=== PATIENT | female | born 1945 | race Caucasian/White ===

== ENCOUNTER 2021-02-18 20:24 | Inpatient (IN) | payer MEDICARE ==
[~2021-02-18] VITALS: Ht 165.1 cm; Wt 102.7 kg
[2021-02-18 20:15] VITALS: BP 181/87
[2021-02-18] MEDS ORDERED: HYDR12.575 PO (22:08)
[2021-02-18] MEDS ORDERED: DICY10SO2 PO (22:08)
[2021-02-18] MEDS ORDERED: BIMA2.5D EACHEYE (22:08)
[2021-02-18] MEDS ORDERED: BRIN10DR EACHEYE (22:08)
[2021-02-18] MEDS ORDERED: BRIM5DRO2 OU (22:08)
[2021-02-18] MEDS ORDERED: CHOL500016 PO (22:08)
[2021-02-18] MEDS ORDERED: ASCO500C PO (22:08)
[2021-02-18] MEDS ORDERED: GABA-585 PO (22:08)
[2021-02-18] MEDS ORDERED: PIP/TAZO PER PHARMACY MC PRN (22:30)
[2021-02-18 23:00] VITALS: BP 152/71
[2021-02-18] MEDS ORDERED: LOSA-73 PO (23:07)
[2021-02-18] MEDS: IV NORMAL SALINE 1000ML BAG 1,000 ML IV SCH (23:20)
[2021-02-19] MEDS: PIPERACILLIN/TAZOBACTAM 3.375 GM in IV NORMAL SALINE 50ML 50 ML IV SCH ×5 (00:01→23:53)
[2021-02-19] MEDS: LATANOPROST 0.005% OPHTH SOLUTION 2.5ML BOTTLE. OU SCH ×2 (00:04→21:45)
[2021-02-19 03:00] VITALS: BP 131/62
[2021-02-19 07:00] VITALS: BP 143/64
[2021-02-19 07:32] LABS: BASO % 1 % (0-3); EOS % 1 % (0-3); HEMATOCRIT 35.1 % (36.0-47.0); HEMOGLOBIN 11.9 g/dL (12.0-15.5); LYMPH # 0.9 x10^3/uL (1.0-4.8); LYMPH % 15 % (24-48); MEAN CORPUSCULAR HEMOGLOBIN 31 pg (25-35); MEAN CORPUSCULAR HGB CONC 34 g/dL (31-37); MEAN CORPUSCULAR VOLUME 90 fL (79-100); MONO # 0.4 x10^3/uL (0.0-1.1); MONO % 7 % (0-9); NEUT # 4.7 x10^3/uL (1.8-7.7); NEUT % 77 % (31-73); PLATELET COUNT 299 x10^3/uL (140-400); RED BLOOD COUNT 3.91 x10^6/uL (3.50-5.40); RED CELL DISTRIBUTION WIDTH 13.7 % (11.5-14.5); WHITE BLOOD COUNT 6.1 x10^3/uL (4.0-11.0)
[2021-02-19 07:40] LABS: CALCIUM 9.1 mg/dL (8.5-10.1); CREATININE 0.8 mg/dL (0.6-1.0); GFR 69.6; POTASSIUM 3.4 mmol/L (3.5-5.1)
[2021-02-19] MEDS ORDERED: LOSARTAN POTASSIUM 50 MG TABLET. PO SCH (09:00)
[2021-02-19] MEDS: TIMOLOL 0.5% OPHTH SOLUTION 5ML BOTTLE. OU SCH ×3 (09:43→21:45)
[2021-02-19] MEDS: DORZOLAMIDE 2% OPHTH SOLUTION 10ML BOTTLE. OU SCH ×5 (09:43→21:45)
[2021-02-19] MEDS: BRIMONIDINE 0.2% OPHTH SOLUTION 5ML BOTTLE. OU SCH ×3 (09:43→21:42)
[2021-02-19] MEDS: hydroCHLOROthiazide 12.5 MG CAPSULE PO SCH (09:44)
[2021-02-19] MEDS: CHOLECALCIFEROL (VITAMIN D3) 5,000 UNIT CAPSULE PO SCH (09:45)
[2021-02-19] MEDS: GABAPENTIN 100 MG CAPSULE. PO SCH ×4 (09:45→21:40)
[2021-02-19] MEDS: ASCORBIC ACID 500 MG TABLET PO SCH (09:45)
[2021-02-19] MEDS: DICYCLOMINE HCL 10 MG CAPSULE PO SCH ×5 (09:46→21:40)
[2021-02-19 11:00] VITALS: BP 135/68
--- NOTE | 2021-02-19 11:33 | HP ---
ADMIT DATE: 02/19/2021 CHIEF COMPLAINT: Diverticulitis. HISTORY OF PRESENT ILLNESS: The patient is a pleasant 75-year-old female who presented with diverticulitis. She was transferred from [facility], as they were concerned there could be a perforation. We started IV antibiotics. We consulted general surgery and GI. She is currently being examined on the medical floor. PAST MEDICAL HISTORY: Urinary urgency, hard of hearing, hypertension, neuropathy, glaucoma. ALLERGIES: None. FAMILY HISTORY: Glaucoma. SOCIAL HISTORY: She does drink, smoke or take drugs. She is retired. MEDICATIONS: Reviewed. She is on dicyclomine, losartan, gabapentin, hydrochlorothiazide, Combigan eyedrops, Azopt eyedrops, Lumigan eyedrops, vitamin C and vitamin D3. REVIEW OF SYSTEMS: GENERAL: No history of weight change, weakness or fevers. SKIN: No bruising, hair changes or rashes. EYES: No blurred, double or loss of vision. NOSE AND THROAT: No history of nosebleeds, hoarseness or sore throat. HEART: No history of palpitations, chest pain or shortness of breath on exertion. LUNGS: Denies cough, hemoptysis, wheezing or shortness of breath. GASTROINTESTINAL: Denies changes in appetite, nausea, vomiting, diarrhea or constipation. GENITOURINARY: No history of frequency, urgency, hesitancy or nocturia. NEUROLOGIC: Denies history of numbness, tingling, tremor or weakness. PSYCHIATRIC: No history of panic, anxiety or depression. ENDOCRINE: No history of heat or cold intolerance, polyuria or polydipsia. EXTREMITIES: Denies muscle weakness, joint pain, pain on walking or stiffness. PHYSICAL EXAMINATION: VITALS: Within normal limits and are stable. GENERAL: No apparent distress. Alert and oriented. HEENT: Normal cephalic atraumatic, external auditory canals are patent. EYES: Extraocular muscles are intact, pupils are equally round and reactive to light and accommodation. MUSCULOSKELETAL: Well developed, well nourished, good range of motion. ENDOCRINE: No thyromegaly was palpated. LYMPHATICS: No cervical chain or axillary nodes were noted. HEMATOPOIETIC: No bruising. NECK: Supple, no JVD, no thyromegaly was noted. LUNGS: Clear to auscultation in all lung crump without rhonchi or wheezing. HEART: RRR, S1, S2 present. Peripheral pulses intact, no obvious murmurs were noted. ABDOMEN: Soft, nontender. Positive bowel sounds no organomegaly, normal bowel sounds. EXTREMITIES: Without any cyanosis, clubbing, or edema. Pedal pulses intact, Homans sign is negative. NEUROLOGIC: Normal speech, normal tone. A and O x3, moves all extremities, no obvious focal deficits. PSYCHIATRIC: Normal affect, normal mood. Stable. SKIN: No ulcerations or rashes, good skin turgor, no jaundice. VASCULAR: Good capillary refill, neurovascular bundle appears to be intact. LABORATORY DATA: White count is 6, hemoglobin 12, platelets 299. Electrolytes are normal other than potassium of 3.4, glucose is slightly high at 110. ASSESSMENT AND PLAN: Diverticulitis with possible diverticular abscess and perforation. Clinically, the patient is doing better this morning. We will continue the IV Zosyn. I am going to continue her home meds. I have added in oxybutynin 5 mg p.o. t.i.d. as she complains of urinary urgency. Home meds. DVT prophylaxis. Full code. Await subspecialist input. Trend labs. JAYSHREE/DEAN/MOH DR: JAYSHREE/derek TID: [id number]
--- NOTE | 2021-02-19 13:09 | PDOC2 ---
CONSULT Date of Consult Date of Consult DATE: 02/19/21 TIME: 13:04 History of Present Illness Reason for Visit: The patient is a 75 year old female who was admitted after obtaining an outpatient CT scan. She reports having intermittent LLQ pain for a few months, and she states she has had a prior history of diverticulitis. In addition she reports having "bladder issues" with pain and frequent urination. She also has had several UTIs in the past. Past Medical History Past Medical History obesity, neuropathy, anxiety Past Surgical History Past Surgical History tubal ligation, excision of a tubal mass, cardiac cath Social History No Current Medications Current Medications Current Medications Piperacillin Sod/ Tazobactam Sod (Zosyn Per Pharmacy) 1 each PRN DAILY PRN [facility] SEE COMMENTS; Start 02/18/21 at 22:30 Sodium Chloride 1,000 ml @ 75 mls/hr [id number] IV Last administered on 02/18/21at 23:20; Start 02/18/21 at 22:30 Piperacillin Sod/ Tazobactam Sod 3.375 gm/Sodium Chloride 50 ml @ 100 mls/hr Q6HRS IV Last administered on 02/19/21at 05:36; Start 02/19/21 at 00:00 Gabapentin (Neurontin) 100 mg TID PO Last administered on 02/19/21at 09:45; Start 02/19/21 at 00:00 Hydrochlorothiazide (Microzide) 12.5 mg DAILY PO Last administered on 02/19/21at 09:44; Start 02/19/21 at 09:00 Losartan Potassium (Cozaar) 50 mg DAILY PO ; Start 02/19/21 at 09:00 Ascorbic Acid (Vitamin C) 500 mg DAILY PO Last administered on 02/19/21at 09:45; Start 02/19/21 at 09:00 Latanoprost (Xalatan) 1 drop QHS OU Last administered on 02/19/21at 00:04; Start 02/19/21 at 00:00 Brimonidine Tartrate (Alphagan) 1 drop BID OU Last administered on 02/19/21at 09:43; Start 02/19/21 at 00:00 Dorzolamide HCl (Trusopt) 1 drop TID OU Last administered on 02/19/21at 09:43; Start 02/19/21 at 00:00 Vitamin D (Vitamin D3) 5,000 unit DAILY PO Last administered on 02/19/21at 09:45; Start 02/19/21 at 09:00 Dicyclomine HCl (Bentyl) 10 mg QID PO Last administered on 02/19/21at 09:46; Start 02/19/21 at 00:00 Timolol Maleate (Timoptic 0.5% Ophth) 1 drop BID OU Last administered on 02/19/21at 09:43; Start 02/19/21 at 00:00 Oxybutynin Chloride (Ditropan) 5 mg [id number] PO ; Start 02/19/21 at 14:00 Active Scripts Active Reported Losartan Potassium 50 Mg Tablet 50 Mg PO DAILY Vitamin C (Ascorbic Acid) 500 Mg Capsule.er 1 Cap PO DAILY 30 Days Vitamin D3 (Cholecalciferol (Vitamin D3)) 125 Mcg Tablet 125 Mcg PO DAILY Azopt (Brinzolamide) 10 Ml Drops.susp 1 Drop EACHEYE TID Combigan Eye Drops (Brimonidine Tartrate/Timolol) 5 Ml Drops 5 Ml OU BID Lumigan (Bimatoprost) 2.5 Ml Drops 1 Drop EACHEYE QHS Dicyclomine Hcl 10 Mg/5 Ml Solution 10 Mg PO QID Gabapentin (Gabapentin) 100 Mg Capsule 100 Mg PO TID Hydrochlorothiazide Capsule (Hydrochlorothiazide) 12.5 Mg Capsule 12.5 Mg PO DAILY Allergies Allergies: Coded Allergies: No Known Drug Allergies (Unverified , 02/18/21) ROS General: No: Chills, Night Sweats, Fatigue, Malaise, Appetite, Other PSYCHOLOGICAL ROS: No: Anxiety, Behavioral Disorder, Concentration difficultie, Decreased libido, Depression, Disorientation, Hallucinations, Hostility, Irritablity, Memory difficulties, Mood Swings, Obsessive thoughts, Physical abuse, Sexual abuse, Sleep disturbances, Suicidal ideation, Other Eyes: No Blurry vision, No Decreased vision, No Double vision, No Dry eyes, No Excessive tearing, No Eye Pain, No Itchy Eyes, No Loss of vision, No Photophobia, No Scotomata, No Uses contacts, No Uses glasses, No Other ALLERGY AND IMMUNOLOGY: No: Hives, Insect Bite Sensitivity, Itchy/Watery Eyes, Nasal Congestion, Post Nasal Drip, Seasonal Allergies, Other Hematological and Lymphatic: No: Bleeding Problems, Blood Clots, Blood Transfusions, Brusing, Night Sweats, Pallor, Swollen Lymph Nodes, Other ENDOCRINE: No: Breast Changes, Galactorrhea, Hair Pattern Changes, Hot Flashes, Malaise/lethargy, Mood Swings, Palpitations, Polydipsia/polyuria, Skin Changes, Temperature Intolerance, Unexpected Weight Changes, Other Breast: No New/Changing Breast Lumps, No Nipple changes, No Nipple discharge, No Other Respiratory: No: Cough, Hemoptysis, Orthopnea, Pleuritic Pain, Shortness of breath, SOB with excertion, Sputum Changes, Stridor, Tachypnea, Wheezing, Other Gastrointestinal: Yes Abdominal Pain Genitourinary: YES Dysuria, YES Frequency Musculoskeletal: No Gait Disturbance, No Joint Pain, No Joint Stiffness, No Joint Swelling, No Muscle Pain, No Muscular Weakness, No Pain In:, No Swelling In:, No Other Neurological: No Behavorial Changes, No Bowel/Bladder ControlChng, No Confusion, No Dizziness, No Gait Disturbance, No Headaches, No Impaired Coord/balance, No Memory Loss, No Numbness/Tingling, No Seizures, No Speech Problems, No Tremors, No Visual Changes, No Weakness, No Other Skin: No Dry Skin, No Eczema, No Hair Changes, No Lumps, No Mole Changes, No Mottling, No Nail Changes, No Pruritus, No Rash, No Skin Lesion Changes, No Other, No Acne Physical Exam General: Alert, Oriented X3, Cooperative, Other (hard of hearing) HEENT: Atraumatic Heart: Regular rate Abdomen: Soft (obese, tender in LLQ) Extremities: No clubbing, No cyanosis Skin: No rashes Neuro: Normal speech Vitals VITALS Vital Signs Date Time Temp Pulse Resp B/P (MAP) Pulse Ox O2 Delivery O2 Flow Rate FiO2 02/19/21 11:00 98.4 76 18 135/68 (90) 92 Room Air 98.4 Labs Labs Laboratory Tests Test 02/19/21 06:30 White Blood Count 6.1 x10^3/uL (4.0-11.0) Red Blood Count 3.91 x10^6/uL (3.50-5.40) Hemoglobin 11.9 g/dL (12.0-15.5) Hematocrit 35.1 % (36.0-47.0) Mean Corpuscular Volume 90 fL (79-100) Mean Corpuscular Hemoglobin 31 pg (25-35) Mean Corpuscular Hemoglobin Concent 34 g/dL (31-37) Red Cell Distribution Width 13.7 % (11.5-14.5) Platelet Count 299 x10^3/uL (140-400) Neutrophils (%) (Auto) 77 % (31-73) Lymphocytes (%) (Auto) 15 % (24-48) Monocytes (%) (Auto) 7 % (0-9) Eosinophils (%) (Auto) 1 % (0-3) Basophils (%) (Auto) 1 % (0-3) Neutrophils # (Auto) 4.7 x10^3/uL (1.8-7.7) Lymphocytes # (Auto) 0.9 x10^3/uL (1.0-4.8) Monocytes # (Auto) 0.4 x10^3/uL (0.0-1.1) Eosinophils # (Auto) 0.0 x10^3/uL (0.0-0.7) Basophils # (Auto) 0.0 x10^3/uL (0.0-0.2) Sodium Level 137 mmol/L (136-145) Potassium Level 3.4 mmol/L (3.5-5.1) Chloride Level 101 mmol/L (98-107) Carbon Dioxide Level 31 mmol/L (21-32) Anion Gap 5 (6-14) Blood Urea Nitrogen 8 mg/dL (7-20) Creatinine 0.8 mg/dL (0.6-1.0) Estimated GFR (Cockcroft-Gault) 69.6 Glucose Level 110 mg/dL (70-99) Calcium Level 9.1 mg/dL (8.5-10.1) Laboratory Tests Test 02/19/21 06:30 White Blood Count 6.1 x10^3/uL (4.0-11.0) Red Blood Count 3.91 x10^6/uL (3.50-5.40) Hemoglobin 11.9 g/dL (12.0-15.5) Hematocrit 35.1 % (36.0-47.0) Mean Corpuscular Volume 90 fL (79-100) Mean Corpuscular Hemoglobin 31 pg (25-35) Mean Corpuscular Hemoglobin Concent 34 g/dL (31-37) Red Cell Distribution Width 13.7 % (11.5-14.5) Platelet Count 299 x10^3/uL (140-400) Neutrophils (%) (Auto) 77 % (31-73) Lymphocytes (%) (Auto) 15 % (24-48) Monocytes (%) (Auto) 7 % (0-9) Eosinophils (%) (Auto) 1 % (0-3) Basophils (%) (Auto) 1 % (0-3) Neutrophils # (Auto) 4.7 x10^3/uL (1.8-7.7) Lymphocytes # (Auto) 0.9 x10^3/uL (1.0-4.8) Monocytes # (Auto) 0.4 x10^3/uL (0.0-1.1) Eosinophils # (Auto) 0.0 x10^3/uL (0.0-0.7) Basophils # (Auto) 0.0 x10^3/uL (0.0-0.2) Sodium Level 137 mmol/L (136-145) Potassium Level 3.4 mmol/L (3.5-5.1) Chloride Level 101 mmol/L (98-107) Carbon Dioxide Level 31 mmol/L (21-32) Anion Gap 5 (6-14) Blood Urea Nitrogen 8 mg/dL (7-20) Creatinine 0.8 mg/dL (0.6-1.0) Estimated GFR (Cockcroft-Gault) 69.6 Glucose Level 110 mg/dL (70-99) Calcium Level 9.1 mg/dL (8.5-10.1) Images Images [place] at [facility] [place]; consistent with diverticulitis with colovesicular fistula Assessment/Plan Assessment/Plan Abdominal pain, suspect diverticulitis with likely colovesicular fistula. On IV abx at this time, likely a chronic process; continue abx, pain control for acute inflammation; ultimately will need to coordinate surgical intervention combined with urology assistance for definitive treatment (sigmoid colon resection with probably ostomy, possible bladder repair, ureteral stenting). KEE AYERS MD Feb 19, 2021 13:09
[2021-02-19] MEDS: OXYBUTYNIN CHLORIDE 5 MG TABLET PO SCH ×2 (13:11→21:40)
[2021-02-19] MEDS: IV NORMAL SALINE 1000ML BAG 1,000 ML IV SCH (13:12)
[2021-02-19 15:00] VITALS: BP 140/65
--- NOTE | 2021-02-19 15:29 | PDOC2 ---
GI CONSULT Reason For Consult: diverticulitis with colovesical fistula HPI: HPI: &5 year old female who was admitted after obtaining an outpatient CT scan that was suspicious for a colovesical fistula She reports having intermittent LLQ pain for a few months, and she states she has had a prior history of diverticul itis. In addition she reports having "bladder issues" with pain and frequent urination. She also has had several UTIs in the past. PMH: PMH: Past Medical History Past Medical History obesity, neuropathy, anxiety Past Surgical History Past Surgical History tubal ligation, excision of a tubal mass, cardiac cath Social HistoryShe does drink, smoke or take drugs. She is retired. ALLERGIES: None. FAMILY HISTORY: Glaucoma. SOCIAL HISTORY: Current Medications Current Medications Current Medications Piperacillin Sod/ Tazobactam Sod (Zosyn Per Pharmacy) 1 each PRN DAILY PRN [facility] SEE COMMENTS; Start 02/18/21 at 22:30 Sodium Chloride 1,000 ml @ 75 mls/hr [id number] IV Last administered on 02/18/21at 23:20; Start 02/18/21 at 22:30 Piperacillin Sod/ Tazobactam Sod 3.375 gm/Sodium Chloride 50 ml @ 100 mls/hr Q6HRS IV Last administered on 02/19/21at 05:36; Start 02/19/21 at 00:00 Gabapentin (Neurontin) 100 mg TID PO Last administered on 02/19/21at 09:45; Start 02/19/21 at 00:00 Hydrochlorothiazide (Microzide) 12.5 mg DAILY PO Last administered on 02/19/21at 09:44; Start 02/19/21 at 09:00 Losartan Potassium (Cozaar) 50 mg DAILY PO ; Start 02/19/21 at 09:00 Ascorbic Acid (Vitamin C) 500 mg DAILY PO Last administered on 02/19/21at 09:45; Start 02/19/21 at 09:00 Latanoprost (Xalatan) 1 drop QHS OU Last administered on 02/19/21at 00:04; Start 02/19/21 at 00:00 Brimonidine Tartrate (Alphagan) 1 drop BID OU Last administered on 02/19/21at 09:43; Start 02/19/21 at 00:00 Dorzolamide HCl (Trusopt) 1 drop TID OU Last administered on 02/19/21at 09:43; Start 02/19/21 at 00:00 Vitamin D (Vitamin D3) 5,000 unit DAILY PO Last administered on 02/19/21at 09:45; Start 02/19/21 at 09:00 Dicyclomine HCl (Bentyl) 10 mg QID PO Last administered on 02/19/21at 09:46; Start 02/19/21 at 00:00 Timolol Maleate (Timoptic 0.5% Ophth) 1 drop BID OU Last administered on 02/19/21at 09:43; Start 02/19/21 at 00:00 Oxybutynin Chloride (Ditropan) 5 mg [id number] PO ; Start 02/19/21 at 14:00 Active Scripts Active Reported Losartan Potassium 50 Mg Tablet 50 Mg PO DAILY Vitamin C (Ascorbic Acid) 500 Mg Capsule.er 1 Cap PO DAILY 30 Days Vitamin D3 (Cholecalciferol (Vitamin D3)) 125 Mcg Tablet 125 Mcg PO DAILY Azopt (Brinzolamide) 10 Ml Drops.susp 1 Drop EACHEYE TID Combigan Eye Drops (Brimonidine Tartrate/Timolol) 5 Ml Drops 5 Ml OU BID Lumigan (Bimatoprost) 2.5 Ml Drops 1 Drop EACHEYE QHS Dicyclomine Hcl 10 Mg/5 Ml Solution 10 Mg PO QID Gabapentin (Gabapentin) 100 Mg Capsule 100 Mg PO TID Hydrochlorothiazide Capsule (Hydrochlorothiazide) 12.5 Mg Capsule 12.5 Mg PO DAILY Allergies Allergies: Coded Allergies: No Known Drug Allergies FH: Family History: No pertinent hx Social History: Smoke: No ROS: ROS General: No: Chills, Night Sweats, Fatigue, Malaise, Appetite, Other PSYCHOLOGICAL ROS: No: Anxiety, Behavioral Disorder, Concentration difficultie, Decreased libido, Depression, Disorientation, Hallucinations, Hostility, Irritablity, Memory difficulties, Mood Swings, Obsessive thoughts, Physical abuse, Sexual abuse, Sleep disturbances, Suicidal ideation, Other Eyes: No Blurry vision, No Decreased vision, No Double vision, No Dry eyes, No Excessive tearing, No Eye Pain, No Itchy Eyes, No Loss of vision, No Photophobia, No Scotomata, No Uses contacts, No Uses glasses, No Other ALLERGY AND IMMUNOLOGY: No: Hives, Insect Bite Sensitivity, Itchy/Watery Eyes, Nasal Congestion, Post Nasal Drip, Seasonal Allergies, Other Hematological and Lymphatic: No: Bleeding Problems, Blood Clots, Blood Transfusions, Brusing, Night Sweats, Pallor, Swollen Lymph Nodes, Other ENDOCRINE: No: Breast Changes, Galactorrhea, Hair Pattern Changes, Hot Flashes, Malaise/lethargy, Mood Swings, Palpitations, Polydipsia/polyuria, Skin Changes, Temperature Intolerance, Unexpected Weight Changes, Other Breast: No New/Changing Breast Lumps, No Nipple changes, No Nipple discharge, No Other Respiratory: No: Cough, Hemoptysis, Orthopnea, Pleuritic Pain, Shortness of breath, SOB with excertion, Sputum Changes, Stridor, Tachypnea, Wheezing, Other Gastrointestinal: Yes Abdominal Pain Genitourinary: YES Dysuria, YES Frequency Musculoskeletal: No Gait Disturbance, No Joint Pain, No Joint Stiffness, No Joint Swelling, No Muscle Pain, No Muscular Weakness, No Pain In:, No Swelling In:, No Other Neurological: No Behavorial Changes, No Bowel/Bladder ControlChng, No Confusion, No Dizziness, No Gait Disturbance, No Headaches, No Impaired Coord/balance, No Memory Loss, No Numbness/Tingling, No Seizures, No Speech Problems, No Tremors, No Visual Changes, No Weakness, No Other Skin: No Dry Skin, No Eczema, No Hair Changes, No Lumps, No Mole Changes, No Mottling, No Nail Changes, No Pruritus, No Rash, No Skin Lesion Changes, No Other, No Acne VItals: Vitals: Vital Signs Date Time Temp Pulse Resp B/P (MAP) Pulse Ox O2 Delivery O2 Flow Rate FiO2 02/19/21 11:00 98.4 76 18 135/68 (90) 92 Room Air 98.4 Labs: Labs: Laboratory Tests Test 02/19/21 06:30 White Blood Count 6.1 x10^3/uL (4.0-11.0) Red Blood Count 3.91 x10^6/uL (3.50-5.40) Hemoglobin 11.9 g/dL (12.0-15.5) Hematocrit 35.1 % (36.0-47.0) Mean Corpuscular Volume 90 fL (79-100) Mean Corpuscular Hemoglobin 31 pg (25-35) Mean Corpuscular Hemoglobin Concent 34 g/dL (31-37) Red Cell Distribution Width 13.7 % (11.5-14.5) Platelet Count 299 x10^3/uL (140-400) Neutrophils (%) (Auto) 77 % (31-73) Lymphocytes (%) (Auto) 15 % (24-48) Monocytes (%) (Auto) 7 % (0-9) Eosinophils (%) (Auto) 1 % (0-3) Basophils (%) (Auto) 1 % (0-3) Neutrophils # (Auto) 4.7 x10^3/uL (1.8-7.7) Lymphocytes # (Auto) 0.9 x10^3/uL (1.0-4.8) Monocytes # (Auto) 0.4 x10^3/uL (0.0-1.1) Eosinophils # (Auto) 0.0 x10^3/uL (0.0-0.7) Basophils # (Auto) 0.0 x10^3/uL (0.0-0.2) Sodium Level 137 mmol/L (136-145) Potassium Level 3.4 mmol/L (3.5-5.1) Chloride Level 101 mmol/L (98-107) Carbon Dioxide Level 31 mmol/L (21-32) Anion Gap 5 (6-14) Blood Urea Nitrogen 8 mg/dL (7-20) Creatinine 0.8 mg/dL (0.6-1.0) Estimated GFR (Cockcroft-Gault) 69.6 Glucose Level 110 mg/dL (70-99) Calcium Level 9.1 mg/dL (8.5-10.1) PE: General: Alert, Oriented X3, Cooperative, Other (hard of hearing) HEENT: Atraumatic Heart: Regular rate Abdomen: Soft (obese, tender in LLQ) Extremities: No clubbing, No cyanosis Skin: No rashes Neuro: Normal speech A/P: A/P: A&P 1) Diverticulitis: abd per surgery 2) 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 Per patient family possible [facility] transfer to access Urology care vs outpatient care. MORELIA PECK MD Feb 19, 2021 15:29
[2021-02-19 19:00] VITALS: BP 128/53
[2021-02-19] MEDS: LACTOBACILLUS RHAMNOSUS GG 1 CAPSULE. PO SCH (21:41)
[2021-02-19] MEDS: LOSARTAN POTASSIUM 50 MG TABLET. PO SCH (21:41)
[2021-02-19 23:00] VITALS: BP 133/53
[2021-02-20 03:00] VITALS: BP 130/51
[2021-02-20] MEDS: IV NORMAL SALINE 1000ML BAG 1,000 ML IV SCH ×2 (04:39→18:09)
[2021-02-20] MEDS: PIPERACILLIN/TAZOBACTAM 3.375 GM in IV NORMAL SALINE 50ML 50 ML IV SCH ×3 (06:06→18:10)
[2021-02-20 07:00] VITALS: BP 146/63
[2021-02-20 07:54] LABS: BASO % 1 % (0-3); EOS # 0.1 x10^3/uL (0.0-0.7); EOS % 3 % (0-3); HEMATOCRIT 34.8 % (36.0-47.0); HEMOGLOBIN 11.5 g/dL (12.0-15.5); LYMPH # 1.2 x10^3/uL (1.0-4.8); LYMPH % 26 % (24-48); MEAN CORPUSCULAR HEMOGLOBIN 30 pg (25-35); MEAN CORPUSCULAR HGB CONC 33 g/dL (31-37); MEAN CORPUSCULAR VOLUME 91 fL (79-100); MONO # 0.7 x10^3/uL (0.0-1.1); MONO % 14 % (0-9); NEUT # 2.7 x10^3/uL (1.8-7.7); NEUT % 57 % (31-73); PLATELET COUNT 283 x10^3/uL (140-400); RED BLOOD COUNT 3.82 x10^6/uL (3.50-5.40); RED CELL DISTRIBUTION WIDTH 13.8 % (11.5-14.5); WHITE BLOOD COUNT 4.7 x10^3/uL (4.0-11.0)
[2021-02-20 08:16] LABS: CALCIUM 8.9 mg/dL (8.5-10.1); CREATININE 0.7 mg/dL (0.6-1.0); GFR 81.1; POTASSIUM 3.3 mmol/L (3.5-5.1)
[2021-02-20] MEDS: ASCORBIC ACID 500 MG TABLET PO SCH (08:41)
[2021-02-20] MEDS: OXYBUTYNIN CHLORIDE 5 MG TABLET PO SCH ×3 (08:41→20:34)
[2021-02-20] MEDS: LACTOBACILLUS RHAMNOSUS GG 1 CAPSULE. PO SCH ×2 (08:41→20:34)
[2021-02-20] MEDS: hydroCHLOROthiazide 12.5 MG CAPSULE PO SCH (08:41)
[2021-02-20] MEDS: CHOLECALCIFEROL (VITAMIN D3) 5,000 UNIT CAPSULE PO SCH (08:41)
[2021-02-20] MEDS: GABAPENTIN 100 MG CAPSULE. PO SCH ×3 (08:41→20:34)
[2021-02-20] MEDS: DICYCLOMINE HCL 10 MG CAPSULE PO SCH ×4 (08:41→20:34)
[2021-02-20] MEDS: TIMOLOL 0.5% OPHTH SOLUTION 5ML BOTTLE. OU SCH ×2 (08:45→15:08)
[2021-02-20] MEDS: DORZOLAMIDE 2% OPHTH SOLUTION 10ML BOTTLE. OU SCH ×3 (08:45→20:32)
[2021-02-20] MEDS: BRIMONIDINE 0.2% OPHTH SOLUTION 5ML BOTTLE. OU SCH ×2 (08:45→15:09)
[2021-02-20] MEDS ORDERED: POTASSIUM CHLORIDE 20 MEQ TABLET.ER. PO ONE (10:15)
--- NOTE | 2021-02-20 10:32 | PDOC ---
PROGRESS NOTES Date of Service DATE: 02/20/21 TIME: 10:30 Subjective Subjective improving, some pain but better Objective Objective Vital Signs Date Time Temp Pulse Resp B/P (MAP) Pulse Ox O2 Delivery O2 Flow Rate FiO2 02/20/21 08:00 Room Air 02/20/21 07:00 97.2 71 18 146/63 (90) 94 97.2 Intake and Output 02/20/21 07:00 Intake Total 390 ml Balance 390 ml Intake Oral 390 ml # Voids 7 Physical Exam Abdomen: Soft (tender LLQ) Heart: Regular rate Extremities: No clubbing, No cyanosis General: Alert, Oriented X3 Lungs: Clear to auscultation Psych/Mental Status: Mental status NL Assessment Assessment Diverticulitis Plan Plan of Care Continue IV abx; seems to be stable and improving; next week will try to make arrangements for definitive care, likely will be able to be discharged on oral abx with FU plans to see Urology and Surgery to coordinate surgical tx Comment Review of Relevant I have reviewed the following items monserrat (where applicable) has been applied. Labs Laboratory Tests Test 02/19/21 06:30 02/20/21 06:40 White Blood Count 6.1 x10^3/uL (4.0-11.0) 4.7 x10^3/uL (4.0-11.0) Red Blood Count 3.91 x10^6/uL (3.50-5.40) 3.82 x10^6/uL (3.50-5.40) Hemoglobin 11.9 g/dL (12.0-15.5) 11.5 g/dL (12.0-15.5) Hematocrit 35.1 % (36.0-47.0) 34.8 % (36.0-47.0) Mean Corpuscular Volume 90 fL (79-100) 91 fL (79-100) Mean Corpuscular Hemoglobin 31 pg (25-35) 30 pg (25-35) Mean Corpuscular Hemoglobin Concent 34 g/dL (31-37) 33 g/dL (31-37) Red Cell Distribution Width 13.7 % (11.5-14.5) 13.8 % (11.5-14.5) Platelet Count 299 x10^3/uL (140-400) 283 x10^3/uL (140-400) Neutrophils (%) (Auto) 77 % (31-73) 57 % (31-73) Lymphocytes (%) (Auto) 15 % (24-48) 26 % (24-48) Monocytes (%) (Auto) 7 % (0-9) 14 % (0-9) Eosinophils (%) (Auto) 1 % (0-3) 3 % (0-3) Basophils (%) (Auto) 1 % (0-3) 1 % (0-3) Neutrophils # (Auto) 4.7 x10^3/uL (1.8-7.7) 2.7 x10^3/uL (1.8-7.7) Lymphocytes # (Auto) 0.9 x10^3/uL (1.0-4.8) 1.2 x10^3/uL (1.0-4.8) Monocytes # (Auto) 0.4 x10^3/uL (0.0-1.1) 0.7 x10^3/uL (0.0-1.1) Eosinophils # (Auto) 0.0 x10^3/uL (0.0-0.7) 0.1 x10^3/uL (0.0-0.7) Basophils # (Auto) 0.0 x10^3/uL (0.0-0.2) 0.0 x10^3/uL (0.0-0.2) Sodium Level 137 mmol/L (136-145) 142 mmol/L (136-145) Potassium Level 3.4 mmol/L (3.5-5.1) 3.3 mmol/L (3.5-5.1) Chloride Level 101 mmol/L (98-107) 104 mmol/L (98-107) Carbon Dioxide Level 31 mmol/L (21-32) 32 mmol/L (21-32) Anion Gap 5 (6-14) 6 (6-14) Blood Urea Nitrogen 8 mg/dL (7-20) 5 mg/dL (7-20) Creatinine 0.8 mg/dL (0.6-1.0) 0.7 mg/dL (0.6-1.0) Estimated GFR (Cockcroft-Gault) 69.6 81.1 Glucose Level 110 mg/dL (70-99) 93 mg/dL (70-99) Calcium Level 9.1 mg/dL (8.5-10.1) 8.9 mg/dL (8.5-10.1) Laboratory Tests Test 02/20/21 06:40 White Blood Count 4.7 x10^3/uL (4.0-11.0) Red Blood Count 3.82 x10^6/uL (3.50-5.40) Hemoglobin 11.5 g/dL (12.0-15.5) Hematocrit 34.8 % (36.0-47.0) Mean Corpuscular Volume 91 fL (79-100) Mean Corpuscular Hemoglobin 30 pg (25-35) Mean Corpuscular Hemoglobin Concent 33 g/dL (31-37) Red Cell Distribution Width 13.8 % (11.5-14.5) Platelet Count 283 x10^3/uL (140-400) Neutrophils (%) (Auto) 57 % (31-73) Lymphocytes (%) (Auto) 26 % (24-48) Monocytes (%) (Auto) 14 % (0-9) Eosinophils (%) (Auto) 3 % (0-3) Basophils (%) (Auto) 1 % (0-3) Neutrophils # (Auto) 2.7 x10^3/uL (1.8-7.7) Lymphocytes # (Auto) 1.2 x10^3/uL (1.0-4.8) Monocytes # (Auto) 0.7 x10^3/uL (0.0-1.1) Eosinophils # (Auto) 0.1 x10^3/uL (0.0-0.7) Basophils # (Auto) 0.0 x10^3/uL (0.0-0.2) Sodium Level 142 mmol/L (136-145) Potassium Level 3.3 mmol/L (3.5-5.1) Chloride Level 104 mmol/L (98-107) Carbon Dioxide Level 32 mmol/L (21-32) Anion Gap 6 (6-14) Blood Urea Nitrogen 5 mg/dL (7-20) Creatinine 0.7 mg/dL (0.6-1.0) Estimated GFR (Cockcroft-Gault) 81.1 Glucose Level 93 mg/dL (70-99) Calcium Level 8.9 mg/dL (8.5-10.1) Medications Current Medications Piperacillin Sod/ Tazobactam Sod (Zosyn Per Pharmacy) 1 each PRN DAILY PRN MC SEE COMMENTS; Start 02/18/21 at 22:30 Sodium Chloride 1,000 ml @ 75 mls/hr [id number] IV Last administered on 02/20/21at 04:39; Start 02/18/21 at 22:30 Piperacillin Sod/ Tazobactam Sod 3.375 gm/Sodium Chloride 50 ml @ 100 mls/hr Q6HRS IV Last administered on 02/20/21at 06:06; Start 02/19/21 at 00:00 Gabapentin (Neurontin) 100 mg TID PO Last administered on 02/20/21at 08:41; Start 02/19/21 at 00:00 Hydrochlorothiazide (Microzide) 12.5 mg DAILY PO Last administered on 02/20/21at 08:41; Start 02/19/21 at 09:00 Losartan Potassium (Cozaar) 50 mg DAILY PO ; Start 02/19/21 at 09:00; Stop 02/19/21 at 19:06; Status DC Ascorbic Acid (Vitamin C) 500 mg DAILY PO Last administered on 02/20/21at 08:41; Start 02/19/21 at 09:00 Latanoprost (Xalatan) 1 drop QHS OU Last administered on 02/19/21at 21:45; Start 02/19/21 at 00:00 Brimonidine Tartrate (Alphagan) 1 drop BID OU Last administered on 02/19/21at 21:42; Start 02/19/21 at 00:00; Stop 02/20/21 at 08:11; Status DC Dorzolamide HCl (Trusopt) 1 drop TID OU Last administered on 02/20/21at 08:45; Start 02/19/21 at 00:00 Vitamin D (Vitamin D3) 5,000 unit DAILY PO Last administered on 02/20/21at 08:41; Start 02/19/21 at 09:00 Dicyclomine HCl (Bentyl) 10 mg QID PO Last administered on 02/20/21at 08:41; Start 02/19/21 at 00:00 Timolol Maleate (Timoptic 0.5% [facility]) 1 drop BID OU Last administered on 02/19/21at 21:45; Start 02/19/21 at 00:00; Stop 02/20/21 at 08:11; Status DC Oxybutynin Chloride (Ditropan) 5 mg [id number] PO Last administered on 02/20/21at 08:41; Start 02/19/21 at 14:00 Lactobacillus Rhamnosus (Culturelle) 1 cap BID PO Last administered on 02/20/21at 08:41; Start 02/19/21 at 21:00 Losartan Potassium (Cozaar) 50 mg QHS PO Last administered on 02/19/21at 21:41; Start 02/19/21 at 21:00 Brimonidine Tartrate (Alphagan) 1 drop [id number] OU Last administered on 02/20/21at 08:45; Start 02/20/21 at 09:00 Timolol Maleate (Timoptic 0.5% Oph) 1 drop [id number] OU Last administered on 02/20/21at 08:45; Start 02/20/21 at 09:00 Potassium Chloride (Klor-Con) 40 meq 1X ONCE PO ; Start 02/20/21 at 10:15; Stop 02/20/21 at 10:22; Status DC Active Scripts Active Reported Losartan Potassium 50 Mg Tablet 50 Mg PO DAILY Vitamin C (Ascorbic Acid) 500 Mg Capsule.er 1 Cap PO DAILY 30 Days Vitamin D3 (Cholecalciferol (Vitamin D3)) 125 Mcg Tablet 125 Mcg PO DAILY Azopt (Brinzolamide) 10 Ml Drops.susp 1 Drop EACHEYE TID Combigan Eye Drops (Brimonidine Tartrate/Timolol) 5 Ml Drops 5 Ml OU BID Lumigan (Bimatoprost) 2.5 Ml Drops 1 Drop EACHEYE QHS Dicyclomine Hcl 10 Mg/5 Ml Solution 10 Mg PO QID Gabapentin (Gabapentin) 100 Mg Capsule 100 Mg PO TID Hydrochlorothiazide Capsule (Hydrochlorothiazide) 12.5 Mg Capsule 12.5 Mg PO DAILY Vitals/I & O Vital Sign - Last 24 Hours 02/19/21 02/19/21 02/19/21 02/19/21 11:00 15:00 19:00 20:00 Temp 98.4 98.2 97.8 98.4 98.2 97.8 Pulse 76 82 74 Resp 18 18 18 B/P (MAP) 135/68 (90) 140/65 (90) 128/53 (78) Pulse Ox 92 92 96 O2 Delivery Room Air Room Air Room Air Room Air 02/19/21 02/19/21 02/20/21 02/20/21 21:41 23:00 03:00 07:00 Temp 97.8 97.9 97.2 97.8 97.9 97.2 Pulse 74 80 76 71 Resp 18 B/P (MAP) 128/53 133/53 (79) 130/51 (77) 146/63 (90) Pulse Ox 96 97 94 O2 Delivery Room Air Room Air 02/20/21 08:00 O2 Delivery Room Air Intake and Output 02/19/21 02/19/21 02/20/21 15:00 23:00 07:00 Intake Total 390 ml Balance 390 ml Justifications for Admission Other Justification KEE AYERS MD Feb 20, 2021 10:32
[2021-02-20 11:00] VITALS: BP 136/72
--- NOTE | 2021-02-20 12:41 | PDOC ---
[employer] PROGRESS NOTE Date of Service DOS: DATE: 02/20/21 TIME: 12:28 Chief Complaint Chief Complaint CC: LLQ abdominal pain Diverticulitis Urge Incontinence Colovesicular Fistula extensive UTI history Obesity Anxiety Neuropathy HTN Glaucoma Cardiac Catheterization History of Present Illness History of Present Illness 02/20 Pt seen and examined. PASQUALE RN. Patient's abdominal pain is improving and no new concerns. HISTORY OF PRESENT ILLNESS: The patient is a pleasant 75-year-old female who presented with diverticulitis. She was transferred from [facility], as they were concerned there could be a perforation. We started IV antibiotics. We consulted general surgery and GI. She is currently being examined on the medical floor. Vitals/I&O Vitals/I&O: Vital Signs Date Time Temp Pulse Resp B/P (MAP) Pulse Ox O2 Delivery O2 Flow Rate FiO2 02/20/21 11:00 98.0 68 18 136/72 (93) 96 98.0 02/20/21 08:00 Room Air I & O 02/19/21 02/19/21 02/20/21 15:00 23:00 07:00 Intake Total 390 ml Balance 390 ml Physical Exam General: Alert, Oriented X3 Heart: Regular rate Abdomen: Soft (tender LLQ) Extremities: No clubbing, No cyanosis Skin: No rashes Labs Labs: Laboratory Tests Test 02/20/21 06:40 White Blood Count 4.7 x10^3/uL (4.0-11.0) Red Blood Count 3.82 x10^6/uL (3.50-5.40) Hemoglobin 11.5 g/dL (12.0-15.5) Hematocrit 34.8 % (36.0-47.0) Mean Corpuscular Volume 91 fL (79-100) Mean Corpuscular Hemoglobin 30 pg (25-35) Mean Corpuscular Hemoglobin Concent 33 g/dL (31-37) Red Cell Distribution Width 13.8 % (11.5-14.5) Platelet Count 283 x10^3/uL (140-400) Neutrophils (%) (Auto) 57 % (31-73) Lymphocytes (%) (Auto) 26 % (24-48) Monocytes (%) (Auto) 14 % (0-9) Eosinophils (%) (Auto) 3 % (0-3) Basophils (%) (Auto) 1 % (0-3) Neutrophils # (Auto) 2.7 x10^3/uL (1.8-7.7) Lymphocytes # (Auto) 1.2 x10^3/uL (1.0-4.8) Monocytes # (Auto) 0.7 x10^3/uL (0.0-1.1) Eosinophils # (Auto) 0.1 x10^3/uL (0.0-0.7) Basophils # (Auto) 0.0 x10^3/uL (0.0-0.2) Sodium Level 142 mmol/L (136-145) Potassium Level 3.3 mmol/L (3.5-5.1) Chloride Level 104 mmol/L (98-107) Carbon Dioxide Level 32 mmol/L (21-32) Anion Gap 6 (6-14) Blood Urea Nitrogen 5 mg/dL (7-20) Creatinine 0.7 mg/dL (0.6-1.0) Estimated GFR (Cockcroft-Gault) 81.1 Glucose Level 93 mg/dL (70-99) Calcium Level 8.9 mg/dL (8.5-10.1) Review of Systems Review of Systems: Denies chest pain . Denies SOA. Assessment and Plan Assessmemt and Plan Assessment: CC: LLQ abdominal pain Diverticulitis Urge Incontinence Colovesicular fistula extensive UTI history Obesity Anxiety Neuropathy HTN Glaucoma Cardiac Catheterization Plan: Await further subspecialist input Replace potassium Continue to Advance Diet if okay with consult Home Meds Trend Labs PT/OT DVT Prophylaxis Discharge Disposition Pending Comment Review of Relevant I have reviewed the following items monserrat (where applicable) has been applied. Medications: Current Medications Medications (Trade) Dose Ordered Sig/Kamar Route PRN Reason Start Time Stop Time Status Last Admin Dose Admin Oxybutynin Chloride (Ditropan) 5 mg [id number] PO 02/19/21 14:00 02/20/21 08:41 Lactobacillus Rhamnosus (Culturelle) 1 cap BID PO 02/19/21 21:00 02/20/21 08:41 Losartan Potassium (Cozaar) 50 mg QHS PO 02/19/21 21:00 02/19/21 21:41 Brimonidine Tartrate (Alphagan) 1 drop [id number] OU 02/20/21 09:00 02/20/21 08:45 Timolol Maleate (Timoptic 0.5% Ophth) 1 drop [id number] OU 02/20/21 09:00 02/20/21 08:45 Justifications for Admission Other Justification LEIA RANGEL III DO Feb 20, 2021 12:41
--- NOTE | 2021-02-20 13:40 | PDOC ---
Date of Service: DATE: 02/20/21 TIME: 13:39 Subjective: Subjective: no new events Objective: Vital Signs: Vital Signs Date Time Temp Pulse Resp B/P (MAP) Pulse Ox O2 Delivery O2 Flow Rate FiO2 02/20/21 11:00 98.0 68 18 136/72 (93) 96 98.0 02/20/21 08:00 Room Air Labs: Laboratory Tests Test 02/20/21 06:40 White Blood Count 4.7 x10^3/uL (4.0-11.0) Red Blood Count 3.82 x10^6/uL (3.50-5.40) Hemoglobin 11.5 g/dL (12.0-15.5) Hematocrit 34.8 % (36.0-47.0) Mean Corpuscular Volume 91 fL (79-100) Mean Corpuscular Hemoglobin 30 pg (25-35) Mean Corpuscular Hemoglobin Concent 33 g/dL (31-37) Red Cell Distribution Width 13.8 % (11.5-14.5) Platelet Count 283 x10^3/uL (140-400) Neutrophils (%) (Auto) 57 % (31-73) Lymphocytes (%) (Auto) 26 % (24-48) Monocytes (%) (Auto) 14 % (0-9) Eosinophils (%) (Auto) 3 % (0-3) Basophils (%) (Auto) 1 % (0-3) Neutrophils # (Auto) 2.7 x10^3/uL (1.8-7.7) Lymphocytes # (Auto) 1.2 x10^3/uL (1.0-4.8) Monocytes # (Auto) 0.7 x10^3/uL (0.0-1.1) Eosinophils # (Auto) 0.1 x10^3/uL (0.0-0.7) Basophils # (Auto) 0.0 x10^3/uL (0.0-0.2) Sodium Level 142 mmol/L (136-145) Potassium Level 3.3 mmol/L (3.5-5.1) Chloride Level 104 mmol/L (98-107) Carbon Dioxide Level 32 mmol/L (21-32) Anion Gap 6 (6-14) Blood Urea Nitrogen 5 mg/dL (7-20) Creatinine 0.7 mg/dL (0.6-1.0) Estimated GFR (Cockcroft-Gault) 81.1 Glucose Level 93 mg/dL (70-99) Calcium Level 8.9 mg/dL (8.5-10.1) Physical Exam: Physical Exam: General: Alert, Oriented X3, Cooperative, Other (hard of hearing) HEENT: Atraumatic Heart: Regular rate Abdomen: Soft (obese, tender in LLQ) Extremities: No clubbing, No cyanosis Skin: No rashes Neuro: Normal speech Assessment & Plan: Assessment : A/P: A/P: A&P 1) Diverticulitis: abd per surgery 2) 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 Plan: Plans per surgery. Dr Torre to return tomorrow Justicifation of Admission Dx: Justifications for Admission: Justification of Admission Dx: N/A MORELIA PECK MD Feb 20, 2021 13:40
[2021-02-20 15:00] VITALS: BP 145/65
[2021-02-20 19:00] VITALS: BP 133/57
[2021-02-20] MEDS: LATANOPROST 0.005% OPHTH SOLUTION 2.5ML BOTTLE. OU SCH (20:32)
[2021-02-20] MEDS: LOSARTAN POTASSIUM 50 MG TABLET. PO SCH (20:35)
[2021-02-20 23:00] VITALS: BP 130/50
[2021-02-21] MEDS: PIPERACILLIN/TAZOBACTAM 3.375 GM in IV NORMAL SALINE 50ML 50 ML IV SCH ×4 (00:48→17:45)
[2021-02-21 03:00] VITALS: BP 111/62
[2021-02-21 06:14] LABS: BASO % 1 % (0-3); EOS # 0.2 x10^3/uL (0.0-0.7); EOS % 3 % (0-3); HEMATOCRIT 34.6 % (36.0-47.0); HEMOGLOBIN 11.5 g/dL (12.0-15.5); LYMPH # 1.2 x10^3/uL (1.0-4.8); LYMPH % 24 % (24-48); MEAN CORPUSCULAR HEMOGLOBIN 30 pg (25-35); MEAN CORPUSCULAR HGB CONC 33 g/dL (31-37); MEAN CORPUSCULAR VOLUME 91 fL (79-100); MONO # 0.6 x10^3/uL (0.0-1.1); MONO % 12 % (0-9); NEUT # 3.1 x10^3/uL (1.8-7.7); NEUT % 61 % (31-73); PLATELET COUNT 284 x10^3/uL (140-400); RED BLOOD COUNT 3.82 x10^6/uL (3.50-5.40); RED CELL DISTRIBUTION WIDTH 13.7 % (11.5-14.5); WHITE BLOOD COUNT 5.1 x10^3/uL (4.0-11.0)
[2021-02-21 06:25] LABS: CALCIUM 8.6 mg/dL (8.5-10.1); CREATININE 0.7 mg/dL (0.6-1.0); GFR 81.1; POTASSIUM 3.8 mmol/L (3.5-5.1)
[2021-02-21 07:00] VITALS: BP 121/63
[2021-02-21] MEDS: IV NORMAL SALINE 1000ML BAG 1,000 ML IV SCH ×3 (08:43→23:09)
[2021-02-21] MEDS: CHOLECALCIFEROL (VITAMIN D3) 5,000 UNIT CAPSULE PO SCH (08:43)
[2021-02-21] MEDS: LACTOBACILLUS RHAMNOSUS GG 1 CAPSULE. PO SCH ×2 (08:43→21:21)
[2021-02-21] MEDS: hydroCHLOROthiazide 12.5 MG CAPSULE PO SCH (08:44)
[2021-02-21] MEDS: GABAPENTIN 100 MG CAPSULE. PO SCH ×3 (08:44→21:22)
[2021-02-21] MEDS: DICYCLOMINE HCL 10 MG CAPSULE PO SCH ×4 (08:44→21:22)
[2021-02-21] MEDS: ASCORBIC ACID 500 MG TABLET PO SCH (08:44)
[2021-02-21] MEDS: OXYBUTYNIN CHLORIDE 5 MG TABLET PO SCH ×3 (08:44→21:22)
[2021-02-21] MEDS: BRIMONIDINE 0.2% OPHTH SOLUTION 5ML BOTTLE. OU SCH ×2 (08:48→17:00)
[2021-02-21] MEDS: DORZOLAMIDE 2% OPHTH SOLUTION 10ML BOTTLE. OU SCH ×3 (08:48→21:20)
[2021-02-21] MEDS: TIMOLOL 0.5% OPHTH SOLUTION 5ML BOTTLE. OU SCH ×2 (08:48→17:00)
--- NOTE | 2021-02-21 09:25 | PDOC ---
SURGICAL PROGRESS NOTE DATE: 02/21/21 TIME: 09:24 Subjective LLQ, maybe a little better pressure with urinating, urine is clear Vital Signs Vital Signs Date Time Temp Pulse Resp B/P (MAP) Pulse Ox O2 Delivery O2 Flow Rate FiO2 02/21/21 08:00 Room Air 02/21/21 07:00 97.8 75 18 121/63 (82) 98 97.8 I&O Intake and Output 02/21/21 07:00 Intake Total 600 ml Balance 600 ml Intake Oral 600 ml # Voids 7 General: Alert, Oriented X3, Cooperative Abdomen: Soft, Other (TTP LLQ) Labs Laboratory Tests Test 02/20/21 06:40 02/21/21 05:40 White Blood Count 4.7 x10^3/uL (4.0-11.0) 5.1 x10^3/uL (4.0-11.0) Red Blood Count 3.82 x10^6/uL (3.50-5.40) 3.82 x10^6/uL (3.50-5.40) Hemoglobin 11.5 g/dL (12.0-15.5) 11.5 g/dL (12.0-15.5) Hematocrit 34.8 % (36.0-47.0) 34.6 % (36.0-47.0) Mean Corpuscular Volume 91 fL (79-100) 91 fL (79-100) Mean Corpuscular Hemoglobin 30 pg (25-35) 30 pg (25-35) Mean Corpuscular Hemoglobin Concent 33 g/dL (31-37) 33 g/dL (31-37) Red Cell Distribution Width 13.8 % (11.5-14.5) 13.7 % (11.5-14.5) Platelet Count 283 x10^3/uL (140-400) 284 x10^3/uL (140-400) Neutrophils (%) (Auto) 57 % (31-73) 61 % (31-73) Lymphocytes (%) (Auto) 26 % (24-48) 24 % (24-48) Monocytes (%) (Auto) 14 % (0-9) 12 % (0-9) Eosinophils (%) (Auto) 3 % (0-3) 3 % (0-3) Basophils (%) (Auto) 1 % (0-3) 1 % (0-3) Neutrophils # (Auto) 2.7 x10^3/uL (1.8-7.7) 3.1 x10^3/uL (1.8-7.7) Lymphocytes # (Auto) 1.2 x10^3/uL (1.0-4.8) 1.2 x10^3/uL (1.0-4.8) Monocytes # (Auto) 0.7 x10^3/uL (0.0-1.1) 0.6 x10^3/uL (0.0-1.1) Eosinophils # (Auto) 0.1 x10^3/uL (0.0-0.7) 0.2 x10^3/uL (0.0-0.7) Basophils # (Auto) 0.0 x10^3/uL (0.0-0.2) 0.0 x10^3/uL (0.0-0.2) Sodium Level 142 mmol/L (136-145) 140 mmol/L (136-145) Potassium Level 3.3 mmol/L (3.5-5.1) 3.8 mmol/L (3.5-5.1) Chloride Level 104 mmol/L (98-107) 105 mmol/L (98-107) Carbon Dioxide Level 32 mmol/L (21-32) 34 mmol/L (21-32) Anion Gap 6 (6-14) 1 (6-14) Blood Urea Nitrogen 5 mg/dL (7-20) 3 mg/dL (7-20) Creatinine 0.7 mg/dL (0.6-1.0) 0.7 mg/dL (0.6-1.0) Estimated GFR (Cockcroft-Gault) 81.1 81.1 Glucose Level 93 mg/dL (70-99) 95 mg/dL (70-99) Calcium Level 8.9 mg/dL (8.5-10.1) 8.6 mg/dL (8.5-10.1) Laboratory Tests Test 02/21/21 05:40 White Blood Count 5.1 x10^3/uL (4.0-11.0) Red Blood Count 3.82 x10^6/uL (3.50-5.40) Hemoglobin 11.5 g/dL (12.0-15.5) Hematocrit 34.6 % (36.0-47.0) Mean Corpuscular Volume 91 fL (79-100) Mean Corpuscular Hemoglobin 30 pg (25-35) Mean Corpuscular Hemoglobin Concent 33 g/dL (31-37) Red Cell Distribution Width 13.7 % (11.5-14.5) Platelet Count 284 x10^3/uL (140-400) Neutrophils (%) (Auto) 61 % (31-73) Lymphocytes (%) (Auto) 24 % (24-48) Monocytes (%) (Auto) 12 % (0-9) Eosinophils (%) (Auto) 3 % (0-3) Basophils (%) (Auto) 1 % (0-3) Neutrophils # (Auto) 3.1 x10^3/uL (1.8-7.7) Lymphocytes # (Auto) 1.2 x10^3/uL (1.0-4.8) Monocytes # (Auto) 0.6 x10^3/uL (0.0-1.1) Eosinophils # (Auto) 0.2 x10^3/uL (0.0-0.7) Basophils # (Auto) 0.0 x10^3/uL (0.0-0.2) Sodium Level 140 mmol/L (136-145) Potassium Level 3.8 mmol/L (3.5-5.1) Chloride Level 105 mmol/L (98-107) Carbon Dioxide Level 34 mmol/L (21-32) Anion Gap 1 (6-14) Blood Urea Nitrogen 3 mg/dL (7-20) Creatinine 0.7 mg/dL (0.6-1.0) Estimated GFR (Cockcroft-Gault) 81.1 Glucose Level 95 mg/dL (70-99) Calcium Level 8.6 mg/dL (8.5-10.1) Assessment/Plan abx, bowel rest Justicifation of Admission Dx: Justifications for Admission: Justification of Admission Dx: N/A [employer] Feb 21, 2021 09:25
--- NOTE | 2021-02-21 10:24 | NUR ---
SW following. Discussed with RN, pt from home with family, room air, clear liquid diet. GI following. Therapy recommending home health. RN advised pt is not ready for discharge today. SW will continue to follow.
--- NOTE | 2021-02-21 10:28 | PDOC ---
Date of Service: DATE: 02/21/21 TIME: 10:24 Subjective: Subjective: Lower abdominal "pressure." Passed stool "all day" yesterday, gas today. Sometimes abnormal urination - "hard to start." Has been on clear liquid diet for for a few days, wants more to eat. Objective: Objective: Reviewed chart - eventually DC on PO atbx, coordinate surgery w/ urology. Vital Signs: Vital Signs Date Time Temp Pulse Resp B/P (MAP) Pulse Ox O2 Delivery O2 Flow Rate FiO2 02/21/21 08:00 Room Air 02/21/21 07:00 97.8 75 18 121/63 (82) 98 97.8 Labs: Laboratory Tests Test 02/21/21 05:40 White Blood Count 5.1 x10^3/uL Red Blood Count 3.82 x10^6/uL Hemoglobin 11.5 g/dL Hematocrit 34.6 % Mean Corpuscular Volume 91 fL Mean Corpuscular Hemoglobin 30 pg Mean Corpuscular Hemoglobin Concent 33 g/dL Red Cell Distribution Width 13.7 % Platelet Count 284 x10^3/uL Neutrophils (%) (Auto) 61 % Lymphocytes (%) (Auto) 24 % Monocytes (%) (Auto) 12 % Eosinophils (%) (Auto) 3 % Basophils (%) (Auto) 1 % Neutrophils # (Auto) 3.1 x10^3/uL Lymphocytes # (Auto) 1.2 x10^3/uL Monocytes # (Auto) 0.6 x10^3/uL Eosinophils # (Auto) 0.2 x10^3/uL Basophils # (Auto) 0.0 x10^3/uL Sodium Level 140 mmol/L Potassium Level 3.8 mmol/L Chloride Level 105 mmol/L Carbon Dioxide Level 34 mmol/L Anion Gap 1 Blood Urea Nitrogen 3 mg/dL Creatinine 0.7 mg/dL Estimated GFR (Cockcroft-Gault) 81.1 Glucose Level 95 mg/dL Calcium Level 8.6 mg/dL PE: GEN: NAD LUNGS: CTAB HEART: RRR ABD: quiet, soft, vague LLQ/suprapubic discomfort NEURO/PSYCH: A & O 3 A/P: Diverticulitis w/ colovesicular fistula - on IV atbx and clear liquid diet Normocytic anemia -- Continue per surgery. Justicifation of Admission Dx: Justifications for Admission: Justification of Admission Dx: N/A YOANDY ADAMS Feb 21, 2021 10:28
--- NOTE | 2021-02-21 10:50 | PDOC ---
[employer] PROGRESS NOTE Date of Service DOS: DATE: 02/21/21 TIME: 10:48 Chief Complaint Chief Complaint CC: LLQ abdominal pain Diverticulitis Urge Incontinence Colovesicular Fistula extensive UTI history Obesity Anxiety Neuropathy HTN Glaucoma Cardiac Catheterization History of Present Illness History of Present Illness 02/21/21 Patient seen and examined at bedside Reports overall feeling better however still is having abdominal pain; says her appetite is improving and would like to try solid food however will do another day of liquids per surgical team Otherwise no complaints Discussed with bedside nurse Will transition to oral antibiotics when appropriate 02/20 Pt seen and examined. PASQUALE RN. Patient's abdominal pain is improving and no new concerns. HISTORY OF PRESENT ILLNESS: The patient is a pleasant 75-year-old female who presented with diverticulitis. She was transferred from [facility], as they were concerned there could be a perforation. We started IV antibiotics. We consulted general surgery and GI. She is currently being examined on the medical floor. Vitals/I&O Vitals/I&O: Vital Signs Date Time Temp Pulse Resp B/P (MAP) Pulse Ox O2 Delivery O2 Flow Rate FiO2 02/21/21 08:00 Room Air 02/21/21 07:00 97.8 75 18 121/63 (82) 98 97.8 I & O 02/20/21 02/20/21 02/21/21 15:00 23:00 07:00 Intake Total 600 ml Balance 600 ml Physical Exam General: Alert, Oriented X3, Cooperative Heart: Regular rate Lungs: Clear Abdomen: Other (Diffusely tender) Extremities: No clubbing, No cyanosis Skin: No rashes Labs Labs: Laboratory Tests Test 02/21/21 05:40 White Blood Count 5.1 x10^3/uL (4.0-11.0) Red Blood Count 3.82 x10^6/uL (3.50-5.40) Hemoglobin 11.5 g/dL (12.0-15.5) Hematocrit 34.6 % (36.0-47.0) Mean Corpuscular Volume 91 fL (79-100) Mean Corpuscular Hemoglobin 30 pg (25-35) Mean Corpuscular Hemoglobin Concent 33 g/dL (31-37) Red Cell Distribution Width 13.7 % (11.5-14.5) Platelet Count 284 x10^3/uL (140-400) Neutrophils (%) (Auto) 61 % (31-73) Lymphocytes (%) (Auto) 24 % (24-48) Monocytes (%) (Auto) 12 % (0-9) Eosinophils (%) (Auto) 3 % (0-3) Basophils (%) (Auto) 1 % (0-3) Neutrophils # (Auto) 3.1 x10^3/uL (1.8-7.7) Lymphocytes # (Auto) 1.2 x10^3/uL (1.0-4.8) Monocytes # (Auto) 0.6 x10^3/uL (0.0-1.1) Eosinophils # (Auto) 0.2 x10^3/uL (0.0-0.7) Basophils # (Auto) 0.0 x10^3/uL (0.0-0.2) Sodium Level 140 mmol/L (136-145) Potassium Level 3.8 mmol/L (3.5-5.1) Chloride Level 105 mmol/L (98-107) Carbon Dioxide Level 34 mmol/L (21-32) Anion Gap 1 (6-14) Blood Urea Nitrogen 3 mg/dL (7-20) Creatinine 0.7 mg/dL (0.6-1.0) Estimated GFR (Cockcroft-Gault) 81.1 Glucose Level 95 mg/dL (70-99) Calcium Level 8.6 mg/dL (8.5-10.1) Review of Systems Review of Systems: Other than abdominal pain patient with no acute complaint Assessment and Plan Assessmemt and Plan Assessment: CC: LLQ abdominal pain Diverticulitis Urge Incontinence Colovesicular fistula extensive UTI history Obesity Anxiety Neuropathy HTN Glaucoma Cardiac Catheterization Plan: Patient will need outpatient surgical intervention with coordination with urology Replace potassium Continue clear liquid diet Home Meds Trend Labs PT/OT DVT Prophylaxis Discharge Disposition Pending Comment Review of Relevant I have reviewed the following items monserrat (where applicable) has been applied. Justifications for Admission Other Justification MYRIAM LANDAVERDE MD Feb 21, 2021 10:50
[2021-02-21 10:58] VITALS: BP 128/51
[2021-02-21 15:00] VITALS: BP 142/55
[2021-02-21 19:00] VITALS: BP 138/60
[2021-02-21] MEDS: LATANOPROST 0.005% OPHTH SOLUTION 2.5ML BOTTLE. OU SCH (21:20)
[2021-02-21] MEDS: LOSARTAN POTASSIUM 50 MG TABLET. PO SCH (21:22)
[2021-02-21 23:00] VITALS: BP 145/53
[2021-02-22] MEDS: PIPERACILLIN/TAZOBACTAM 3.375 GM in IV NORMAL SALINE 50ML 50 ML IV SCH ×4 (00:20→17:43)
[2021-02-22 03:00] VITALS: BP 130/54
[2021-02-22 04:47] LABS: BASO % 1 % (0-3); EOS # 0.2 x10^3/uL (0.0-0.7); EOS % 3 % (0-3); HEMATOCRIT 35.3 % (36.0-47.0); HEMOGLOBIN 11.5 g/dL (12.0-15.5); LYMPH # 1.5 x10^3/uL (1.0-4.8); LYMPH % 26 % (24-48); MEAN CORPUSCULAR HEMOGLOBIN 30 pg (25-35); MEAN CORPUSCULAR HGB CONC 33 g/dL (31-37); MEAN CORPUSCULAR VOLUME 91 fL (79-100); MONO # 0.6 x10^3/uL (0.0-1.1); MONO % 10 % (0-9); NEUT # 3.4 x10^3/uL (1.8-7.7); NEUT % 60 % (31-73); PLATELET COUNT 298 x10^3/uL (140-400); RED BLOOD COUNT 3.87 x10^6/uL (3.50-5.40); RED CELL DISTRIBUTION WIDTH 13.5 % (11.5-14.5); WHITE BLOOD COUNT 5.7 x10^3/uL (4.0-11.0)
[2021-02-22 05:04] LABS: CALCIUM 9.1 mg/dL (8.5-10.1); CREATININE 0.7 mg/dL (0.6-1.0); GFR 81.1; POTASSIUM 3.3 mmol/L (3.5-5.1)
[2021-02-22] MEDS: IV NORMAL SALINE 1000ML BAG 1,000 ML IV SCH ×2 (06:30→12:20)
[2021-02-22 07:00] VITALS: BP 138/57
[2021-02-22] MEDS ORDERED: POTASSIUM BICARB 20 MEQ EFFERVESCENT TABLET. PO ONE (07:45)
--- NOTE | 2021-02-22 07:48 | PDOC ---
[employer] [facility] PROGRESS NOTE Date of Service DOS: DATE: 02/22/21 TIME: 07:46 Chief Complaint Chief Complaint CC: LLQ abdominal pain Diverticulitis Urge Incontinence Colovesicular Fistula extensive UTI history Obesity Anxiety Neuropathy HTN Glaucoma Cardiac Catheterization History of Present Illness History of Present Illness Ms Denis is a 75-year-old female who presented with diverticulitis, had ou tpatient CT scan concerning for colovesicular fistula with perforated diverticulitis with abscess outpatient and was instructed to go to the ED. She was transferred from [facility], as they were concerned there could be a perforation. Started IV antibiotics and consulted general surgery and GI. 02/20: Patient's abdominal pain is improving and no new concerns. 02/21: Feeling better however still is having abdominal pain; says her appetite is improving and would like to try solid food however will do another day of liquids per surgical team Afebrile overnight. Urine from [facility] polymicrobial. She is upset about not getting her diet advanced. Pain reasonably controlled. Vitals/I&O Vitals/I&O: Vital Signs Date Time Temp Pulse Resp B/P (MAP) Pulse Ox O2 Delivery O2 Flow Rate FiO2 02/22/21 03:00 97.7 69 18 130/54 (79) 95 Room Air 97.7 I & O 02/21/21 02/21/21 02/22/21 15:00 23:00 07:00 Intake Total 780 ml 200 ml Balance 780 ml 200 ml Physical Exam General: Alert, Oriented X3, Cooperative Heart: Regular rate Lungs: Clear Abdomen: Other (Diffusely tender) Extremities: No clubbing, No cyanosis Skin: No rashes Labs Labs: Laboratory Tests Test 02/22/21 03:10 White Blood Count 5.7 x10^3/uL (4.0-11.0) Red Blood Count 3.87 x10^6/uL (3.50-5.40) Hemoglobin 11.5 g/dL (12.0-15.5) Hematocrit 35.3 % (36.0-47.0) Mean Corpuscular Volume 91 fL (79-100) Mean Corpuscular Hemoglobin 30 pg (25-35) Mean Corpuscular Hemoglobin Concent 33 g/dL (31-37) Red Cell Distribution Width 13.5 % (11.5-14.5) Platelet Count 298 x10^3/uL (140-400) Neutrophils (%) (Auto) 60 % (31-73) Lymphocytes (%) (Auto) 26 % (24-48) Monocytes (%) (Auto) 10 % (0-9) Eosinophils (%) (Auto) 3 % (0-3) Basophils (%) (Auto) 1 % (0-3) Neutrophils # (Auto) 3.4 x10^3/uL (1.8-7.7) Lymphocytes # (Auto) 1.5 x10^3/uL (1.0-4.8) Monocytes # (Auto) 0.6 x10^3/uL (0.0-1.1) Eosinophils # (Auto) 0.2 x10^3/uL (0.0-0.7) Basophils # (Auto) 0.0 x10^3/uL (0.0-0.2) Sodium Level 141 mmol/L (136-145) Potassium Level 3.3 mmol/L (3.5-5.1) Chloride Level 105 mmol/L (98-107) Carbon Dioxide Level 29 mmol/L (21-32) Anion Gap 7 (6-14) Blood Urea Nitrogen 3 mg/dL (7-20) Creatinine 0.7 mg/dL (0.6-1.0) Estimated GFR (Cockcroft-Gault) 81.1 Glucose Level 94 mg/dL (70-99) Calcium Level 9.1 mg/dL (8.5-10.1) Comment Review of Relevant I have reviewed the following items monserrat (where applicable) has been applied. Justifications for Admission Other Justification MYRIAM CANDELARIO MD Feb 22, 2021 07:48
[2021-02-22] MEDS: LACTOBACILLUS RHAMNOSUS GG 1 CAPSULE. PO SCH ×2 (09:21→20:58)
[2021-02-22] MEDS: GABAPENTIN 100 MG CAPSULE. PO SCH ×3 (09:22→20:56)
[2021-02-22] MEDS: BRIMONIDINE 0.2% OPHTH SOLUTION 5ML BOTTLE. OU SCH ×2 (09:22→17:42)
[2021-02-22] MEDS: DORZOLAMIDE 2% OPHTH SOLUTION 10ML BOTTLE. OU SCH ×3 (09:22→20:55)
[2021-02-22] MEDS: TIMOLOL 0.5% OPHTH SOLUTION 5ML BOTTLE. OU SCH ×2 (09:22→17:42)
[2021-02-22] MEDS: ASCORBIC ACID 500 MG TABLET PO SCH (09:23)
[2021-02-22] MEDS: OXYBUTYNIN CHLORIDE 5 MG TABLET PO SCH ×3 (09:23→20:58)
[2021-02-22] MEDS: CHOLECALCIFEROL (VITAMIN D3) 5,000 UNIT CAPSULE PO SCH (09:23)
[2021-02-22] MEDS: DICYCLOMINE HCL 10 MG CAPSULE PO SCH ×4 (09:23→20:58)
--- NOTE | 2021-02-22 10:13 | PDOC ---
Date of Service: DATE: 02/22/21 TIME: 10:10 Subjective: Subjective: She's talking on the phone to her friend - says she doesn't want to be on a liquid diet and thinks she'll probably lose a lot of weight. Objective: Objective: D/w nurse - pt reported "diarrhea" yesterday - no stools today. Tolerates clear liquids. Vital Signs: Vital Signs Date Time Temp Pulse Resp B/P (MAP) Pulse Ox O2 Delivery O2 Flow Rate FiO2 02/22/21 07:37 Room Air 02/22/21 07:00 97.8 68 16 138/57 (84) 97 97.8 Labs: Laboratory Tests Test 02/22/21 03:10 White Blood Count 5.7 x10^3/uL Red Blood Count 3.87 x10^6/uL Hemoglobin 11.5 g/dL Hematocrit 35.3 % Mean Corpuscular Volume 91 fL Mean Corpuscular Hemoglobin 30 pg Mean Corpuscular Hemoglobin Concent 33 g/dL Red Cell Distribution Width 13.5 % Platelet Count 298 x10^3/uL Neutrophils (%) (Auto) 60 % Lymphocytes (%) (Auto) 26 % Monocytes (%) (Auto) 10 % Eosinophils (%) (Auto) 3 % Basophils (%) (Auto) 1 % Neutrophils # (Auto) 3.4 x10^3/uL Lymphocytes # (Auto) 1.5 x10^3/uL Monocytes # (Auto) 0.6 x10^3/uL Eosinophils # (Auto) 0.2 x10^3/uL Basophils # (Auto) 0.0 x10^3/uL Sodium Level 141 mmol/L Potassium Level 3.3 mmol/L Chloride Level 105 mmol/L Carbon Dioxide Level 29 mmol/L Anion Gap 7 Blood Urea Nitrogen 3 mg/dL Creatinine 0.7 mg/dL Estimated GFR (Cockcroft-Gault) 81.1 Glucose Level 94 mg/dL Calcium Level 9.1 mg/dL Magnesium Level 2.0 mg/dL PE: GEN: NAD - sitting on edge of bed, talking on phone LUNGS: CTAB HEART: RRR ABD: soft NEURO/PSYCH: A & O 3 A/P: Diverticulitis w/ colovesicular fistula - on IV atbx and clear liquid diet - plans to coordinate future surgery w/ urology Normocytic anemia - stable -- Continue per surgery. Justicifation of Admission Dx: Justifications for Admission: Justification of Admission Dx: N/A YOANDY ADAMS Feb 22, 2021 10:13 KEE BEACH MD Feb 22, 2021 12:15
[2021-02-22 11:00] VITALS: BP 149/64
--- NOTE | 2021-02-22 13:03 | PDOC ---
SURGICAL PROGRESS NOTE DATE: 02/22/21 TIME: 13:01 Subjective worried about not eating, loose stools Vital Signs Vital Signs Date Time Temp Pulse Resp B/P (MAP) Pulse Ox O2 Delivery O2 Flow Rate FiO2 02/22/21 11:00 97.9 73 16 149/64 (92) 97 Room Air 97.9 I&O Intake and Output 02/22/21 07:00 Intake Total 980 ml Balance 980 ml Intake Oral 980 ml # Voids 6 General: Alert, Oriented X3, Cooperative Abdomen: Soft, No tenderness Labs Laboratory Tests Test 02/21/21 05:40 02/22/21 03:10 White Blood Count 5.1 x10^3/uL (4.0-11.0) 5.7 x10^3/uL (4.0-11.0) Red Blood Count 3.82 x10^6/uL (3.50-5.40) 3.87 x10^6/uL (3.50-5.40) Hemoglobin 11.5 g/dL (12.0-15.5) 11.5 g/dL (12.0-15.5) Hematocrit 34.6 % (36.0-47.0) 35.3 % (36.0-47.0) Mean Corpuscular Volume 91 fL (79-100) 91 fL (79-100) Mean Corpuscular Hemoglobin 30 pg (25-35) 30 pg (25-35) Mean Corpuscular Hemoglobin Concent 33 g/dL (31-37) 33 g/dL (31-37) Red Cell Distribution Width 13.7 % (11.5-14.5) 13.5 % (11.5-14.5) Platelet Count 284 x10^3/uL (140-400) 298 x10^3/uL (140-400) Neutrophils (%) (Auto) 61 % (31-73) 60 % (31-73) Lymphocytes (%) (Auto) 24 % (24-48) 26 % (24-48) Monocytes (%) (Auto) 12 % (0-9) 10 % (0-9) Eosinophils (%) (Auto) 3 % (0-3) 3 % (0-3) Basophils (%) (Auto) 1 % (0-3) 1 % (0-3) Neutrophils # (Auto) 3.1 x10^3/uL (1.8-7.7) 3.4 x10^3/uL (1.8-7.7) Lymphocytes # (Auto) 1.2 x10^3/uL (1.0-4.8) 1.5 x10^3/uL (1.0-4.8) Monocytes # (Auto) 0.6 x10^3/uL (0.0-1.1) 0.6 x10^3/uL (0.0-1.1) Eosinophils # (Auto) 0.2 x10^3/uL (0.0-0.7) 0.2 x10^3/uL (0.0-0.7) Basophils # (Auto) 0.0 x10^3/uL (0.0-0.2) 0.0 x10^3/uL (0.0-0.2) Sodium Level 140 mmol/L (136-145) 141 mmol/L (136-145) Potassium Level 3.8 mmol/L (3.5-5.1) 3.3 mmol/L (3.5-5.1) Chloride Level 105 mmol/L (98-107) 105 mmol/L (98-107) Carbon Dioxide Level 34 mmol/L (21-32) 29 mmol/L (21-32) Anion Gap 1 (6-14) 7 (6-14) Blood Urea Nitrogen 3 mg/dL (7-20) 3 mg/dL (7-20) Creatinine 0.7 mg/dL (0.6-1.0) 0.7 mg/dL (0.6-1.0) Estimated GFR (Cockcroft-Gault) 81.1 81.1 Glucose Level 95 mg/dL (70-99) 94 mg/dL (70-99) Calcium Level 8.6 mg/dL (8.5-10.1) 9.1 mg/dL (8.5-10.1) Magnesium Level 2.0 mg/dL (1.8-2.4) Laboratory Tests Test 02/22/21 03:10 White Blood Count 5.7 x10^3/uL (4.0-11.0) Red Blood Count 3.87 x10^6/uL (3.50-5.40) Hemoglobin 11.5 g/dL (12.0-15.5) Hematocrit 35.3 % (36.0-47.0) Mean Corpuscular Volume 91 fL (79-100) Mean Corpuscular Hemoglobin 30 pg (25-35) Mean Corpuscular Hemoglobin Concent 33 g/dL (31-37) Red Cell Distribution Width 13.5 % (11.5-14.5) Platelet Count 298 x10^3/uL (140-400) Neutrophils (%) (Auto) 60 % (31-73) Lymphocytes (%) (Auto) 26 % (24-48) Monocytes (%) (Auto) 10 % (0-9) Eosinophils (%) (Auto) 3 % (0-3) Basophils (%) (Auto) 1 % (0-3) Neutrophils # (Auto) 3.4 x10^3/uL (1.8-7.7) Lymphocytes # (Auto) 1.5 x10^3/uL (1.0-4.8) Monocytes # (Auto) 0.6 x10^3/uL (0.0-1.1) Eosinophils # (Auto) 0.2 x10^3/uL (0.0-0.7) Basophils # (Auto) 0.0 x10^3/uL (0.0-0.2) Sodium Level 141 mmol/L (136-145) Potassium Level 3.3 mmol/L (3.5-5.1) Chloride Level 105 mmol/L (98-107) Carbon Dioxide Level 29 mmol/L (21-32) Anion Gap 7 (6-14) Blood Urea Nitrogen 3 mg/dL (7-20) Creatinine 0.7 mg/dL (0.6-1.0) Estimated GFR (Cockcroft-Gault) 81.1 Glucose Level 94 mg/dL (70-99) Calcium Level 9.1 mg/dL (8.5-10.1) Magnesium Level 2.0 mg/dL (1.8-2.4) Problem List will plan on oral abx for couple weeks as outpt, will arrange urology consult, coordination of surgery after seen likely dc wed or thurs Justicifation of Admission Dx: Justifications for Admission: Justification of Admission Dx: N/A [employer] Feb 22, 2021 13:03
[2021-02-22 15:00] VITALS: BP 166/64
[2021-02-22 19:00] VITALS: BP 130/52
[2021-02-22] MEDS: LOSARTAN POTASSIUM 50 MG TABLET. PO SCH (20:58)
[2021-02-22] MEDS: LATANOPROST 0.005% OPHTH SOLUTION 2.5ML BOTTLE. OU SCH (21:00)
[2021-02-22 23:00] VITALS: BP 127/59
[2021-02-23] MEDS: PIPERACILLIN/TAZOBACTAM 3.375 GM in IV NORMAL SALINE 50ML 50 ML IV SCH ×4 (00:50→18:20)
[2021-02-23] MEDS: IV NORMAL SALINE 1000ML BAG 1,000 ML IV SCH ×2 (02:20→22:30)
[2021-02-23 03:00] VITALS: BP 122/71
[2021-02-23 05:08] LABS: BASO % 1 % (0-3); EOS # 0.2 x10^3/uL (0.0-0.7); EOS % 4 % (0-3); HEMATOCRIT 32.8 % (36.0-47.0); HEMOGLOBIN 10.9 g/dL (12.0-15.5); LYMPH # 1.5 x10^3/uL (1.0-4.8); LYMPH % 29 % (24-48); MEAN CORPUSCULAR HEMOGLOBIN 30 pg (25-35); MEAN CORPUSCULAR HGB CONC 33 g/dL (31-37); MEAN CORPUSCULAR VOLUME 91 fL (79-100); MONO # 0.5 x10^3/uL (0.0-1.1); MONO % 11 % (0-9); NEUT # 2.8 x10^3/uL (1.8-7.7); NEUT % 56 % (31-73); PLATELET COUNT 256 x10^3/uL (140-400); RED BLOOD COUNT 3.62 x10^6/uL (3.50-5.40); RED CELL DISTRIBUTION WIDTH 13.6 % (11.5-14.5)
[2021-02-23 05:34] LABS: CALCIUM 8.7 mg/dL (8.5-10.1); CREATININE 0.7 mg/dL (0.6-1.0); GFR 81.1; POTASSIUM 3.8 mmol/L (3.5-5.1)
[2021-02-23 05:40] LABS: ALBUMIN 2.2 g/dL (3.4-5.0); DIRECT BILIRUBIN 0.2 mg/dL (0.0-0.2); TOTAL BILIRUBIN 0.5 mg/dL (0.2-1.0); TOTAL PROTEIN 6.2 g/dL (6.4-8.2)
[2021-02-23 07:00] VITALS: BP 160/71
[2021-02-23] MEDS: OXYBUTYNIN CHLORIDE 5 MG TABLET PO SCH ×3 (08:42→21:18)
[2021-02-23] MEDS: GABAPENTIN 100 MG CAPSULE. PO SCH ×3 (08:42→21:17)
[2021-02-23] MEDS: ASCORBIC ACID 500 MG TABLET PO SCH (08:42)
[2021-02-23] MEDS: DORZOLAMIDE 2% OPHTH SOLUTION 10ML BOTTLE. OU SCH ×3 (08:42→21:23)
[2021-02-23] MEDS: CHOLECALCIFEROL (VITAMIN D3) 5,000 UNIT CAPSULE PO SCH (08:42)
[2021-02-23] MEDS: LACTOBACILLUS RHAMNOSUS GG 1 CAPSULE. PO SCH ×2 (08:42→21:18)
[2021-02-23] MEDS: BRIMONIDINE 0.2% OPHTH SOLUTION 5ML BOTTLE. OU SCH ×2 (08:42→15:37)
[2021-02-23] MEDS: TIMOLOL 0.5% OPHTH SOLUTION 5ML BOTTLE. OU SCH ×2 (08:42→15:37)
[2021-02-23] MEDS: DICYCLOMINE HCL 10 MG CAPSULE PO SCH ×4 (08:42→21:19)
--- NOTE | 2021-02-23 10:41 | PDOC ---
[employer] PROGRESS NOTE Date of Service DOS: DATE: 02/23/21 TIME: 10:39 Chief Complaint Chief Complaint CC: LLQ abdominal pain Diverticulitis Urge Incontinence Colovesicular Fistula extensive UTI history Obesity Anxiety Neuropathy HTN Glaucoma Cardiac Catheterization History of Present Illness History of Present Illness Ms Denis is a 75-year-old female who presented with diverticulitis, had ou tpatient CT scan concerning for colovesicular fistula with perforated diverticulitis with abscess outpatient and was instructed to go to the ED. She was transferred from [facility], as they were concerned there could be a perforation. Started IV antibiotics and consulted general surgery and GI. 02/20: Patient's abdominal pain is improving and no new concerns. 02/21: Feeling better however still is having abdominal pain; says her appetite is improving and would like to try solid food however will do another day of liquids per surgical team 02/22:Afebrile overnight. Urine from [facility] polymicrobial. She is upset about not getting her diet advanced. Pain reasonably controlled. 02/23: Patient seen and examined at bedside; no complaints this morning, she was very happy to have her diet advanced yesterday. She said she tolerated it well without difficulty. Awaiting surgical team recommendations for outpatient surgery and transition to oral antibiotics. If can transition to oral an tibiotics today likely DC today or tomorrow Vitals/I&O Vitals/I&O: Vital Signs Date Time Temp Pulse Resp B/P (MAP) Pulse Ox O2 Delivery O2 Flow Rate FiO2 02/23/21 07:42 Room Air 02/23/21 07:00 97.9 69 17 160/71 (100) 97 97.9 I & O 02/22/21 02/22/21 02/23/21 15:00 23:00 07:00 Intake Total 120 ml 120 ml Balance 120 ml 120 ml Physical Exam General: Alert, Oriented X3, Cooperative, No acute distress Heart: Regular rate Lungs: Clear Abdomen: Soft, No tenderness, No hepatosplenomegaly Extremities: No clubbing, No cyanosis Skin: No rashes, No significant lesion Labs Labs: Laboratory Tests Test 02/23/21 04:15 White Blood Count 5.0 x10^3/uL (4.0-11.0) Red Blood Count 3.62 x10^6/uL (3.50-5.40) Hemoglobin 10.9 g/dL (12.0-15.5) Hematocrit 32.8 % (36.0-47.0) Mean Corpuscular Volume 91 fL (79-100) Mean Corpuscular Hemoglobin 30 pg (25-35) Mean Corpuscular Hemoglobin Concent 33 g/dL (31-37) Red Cell Distribution Width 13.6 % (11.5-14.5) Platelet Count 256 x10^3/uL (140-400) Neutrophils (%) (Auto) 56 % (31-73) Lymphocytes (%) (Auto) 29 % (24-48) Monocytes (%) (Auto) 11 % (0-9) Eosinophils (%) (Auto) 4 % (0-3) Basophils (%) (Auto) 1 % (0-3) Neutrophils # (Auto) 2.8 x10^3/uL (1.8-7.7) Lymphocytes # (Auto) 1.5 x10^3/uL (1.0-4.8) Monocytes # (Auto) 0.5 x10^3/uL (0.0-1.1) Eosinophils # (Auto) 0.2 x10^3/uL (0.0-0.7) Basophils # (Auto) 0.0 x10^3/uL (0.0-0.2) Sodium Level 143 mmol/L (136-145) Potassium Level 3.8 mmol/L (3.5-5.1) Chloride Level 109 mmol/L (98-107) Carbon Dioxide Level 33 mmol/L (21-32) Anion Gap 1 (6-14) Blood Urea Nitrogen 4 mg/dL (7-20) Creatinine 0.7 mg/dL (0.6-1.0) Estimated GFR (Cockcroft-Gault) 81.1 Glucose Level 97 mg/dL (70-99) Calcium Level 8.7 mg/dL (8.5-10.1) Total Bilirubin 0.5 mg/dL (0.2-1.0) Direct Bilirubin 0.2 mg/dL (0.0-0.2) Aspartate Amino Transf (AST/SGOT) 20 U/L (15-37) Alanine Aminotransferase (ALT/SGPT) 16 U/L (14-59) Alkaline Phosphatase 41 U/L (46-116) Total Protein 6.2 g/dL (6.4-8.2) Albumin 2.2 g/dL (3.4-5.0) Review of Systems Review of Systems: Patient with no complaints Comment Review of Relevant I have reviewed the following items monserrat (where applicable) has been applied. Justifications for Admission Other Justification MYRIAM LANDAVERDE MD Feb 23, 2021 10:41
[2021-02-23 11:00] VITALS: BP 146/68
--- NOTE | 2021-02-23 11:39 | PDOC ---
Date of Service: DATE: 02/23/21 TIME: 11:35 Subjective: Subjective: Thinks she might get to go home today or tomorrow. Really likes the soft food diet. Some lower abdominal pain ("twinges") occasionally. I asked her about urology/surgery follow-up - she says "they didn't talk about that." Indicates she sometimes is forgetful and likes it when friends/family are here to listen to help her keep things straight. Objective: Vital Signs: Vital Signs Date Time Temp Pulse Resp B/P (MAP) Pulse Ox O2 Delivery O2 Flow Rate FiO2 02/23/21 07:42 Room Air 02/23/21 07:00 97.9 69 17 160/71 (100) 97 97.9 Labs: Laboratory Tests Test 02/23/21 04:15 White Blood Count 5.0 x10^3/uL Red Blood Count 3.62 x10^6/uL Hemoglobin 10.9 g/dL Hematocrit 32.8 % Mean Corpuscular Volume 91 fL Mean Corpuscular Hemoglobin 30 pg Mean Corpuscular Hemoglobin Concent 33 g/dL Red Cell Distribution Width 13.6 % Platelet Count 256 x10^3/uL Neutrophils (%) (Auto) 56 % Lymphocytes (%) (Auto) 29 % Monocytes (%) (Auto) 11 % Eosinophils (%) (Auto) 4 % Basophils (%) (Auto) 1 % Neutrophils # (Auto) 2.8 x10^3/uL Lymphocytes # (Auto) 1.5 x10^3/uL Monocytes # (Auto) 0.5 x10^3/uL Eosinophils # (Auto) 0.2 x10^3/uL Basophils # (Auto) 0.0 x10^3/uL Sodium Level 143 mmol/L Potassium Level 3.8 mmol/L Chloride Level 109 mmol/L Carbon Dioxide Level 33 mmol/L Anion Gap 1 Blood Urea Nitrogen 4 mg/dL Creatinine 0.7 mg/dL Estimated GFR (Cockcroft-Gault) 81.1 Glucose Level 97 mg/dL Calcium Level 8.7 mg/dL Total Bilirubin 0.5 mg/dL Direct Bilirubin 0.2 mg/dL Aspartate Amino Transf (AST/SGOT) 20 U/L Alanine Aminotransferase (ALT/SGPT) 16 U/L Alkaline Phosphatase 41 U/L Total Protein 6.2 g/dL Albumin 2.2 g/dL PE: GEN: NAD LUNGS: CTAB HEART: RRR ABD: NABS, S/ND/NT NEURO/PSYCH: A & O 3 A/P: Diverticulitis w/ colovesicular fistula -- Continue per surgery. We discussed importance of outpt urology/surgery follow-up. Justicifation of Admission Dx: Justifications for Admission: Justification of Admission Dx: N/A YOANDY ADAMS Feb 23, 2021 11:39
[2021-02-23 15:00] VITALS: BP 161/77
--- NOTE | 2021-02-23 15:44 | NUR ---
SW following. Discussed with RN, therapy recommending home health. SW met with pt, pt agreeable to home health, does not have a preference of provider. SW faxed referral to [facility] (ph: [phone], fax: [phone]), awaiting acceptance decision. Choice of vendor form completed. ARABELLA will continue to follow.
[2021-02-23 19:00] VITALS: BP 139/56
[2021-02-23] MEDS: LOSARTAN POTASSIUM 50 MG TABLET. PO SCH (21:18)
[2021-02-23] MEDS: LATANOPROST 0.005% OPHTH SOLUTION 2.5ML BOTTLE. OU SCH (21:23)
[2021-02-23 23:00] VITALS: BP 170/63
[2021-02-24] VITALS (7 sets, daily range): BP systolic 126–184; BP diastolic 48–77
[2021-02-24] MEDS: PIPERACILLIN/TAZOBACTAM 3.375 GM in IV NORMAL SALINE 50ML 50 ML IV SCH ×2 (00:09→06:12)
[2021-02-24 04:26] LABS: BASO % 1 % (0-3); EOS # 0.2 x10^3/uL (0.0-0.7); EOS % 5 % (0-3); HEMATOCRIT 35.4 % (36.0-47.0); HEMOGLOBIN 11.7 g/dL (12.0-15.5); LYMPH # 1.5 x10^3/uL (1.0-4.8); LYMPH % 32 % (24-48); MEAN CORPUSCULAR HEMOGLOBIN 30 pg (25-35); MEAN CORPUSCULAR HGB CONC 33 g/dL (31-37); MEAN CORPUSCULAR VOLUME 91 fL (79-100); MONO # 0.4 x10^3/uL (0.0-1.1); MONO % 10 % (0-9); NEUT # 2.5 x10^3/uL (1.8-7.7); NEUT % 53 % (31-73); PLATELET COUNT 288 x10^3/uL (140-400); RED BLOOD COUNT 3.88 x10^6/uL (3.50-5.40); RED CELL DISTRIBUTION WIDTH 13.7 % (11.5-14.5); WHITE BLOOD COUNT 4.7 x10^3/uL (4.0-11.0)
[2021-02-24 04:47] LABS: CALCIUM 8.9 mg/dL (8.5-10.1); CREATININE 0.7 mg/dL (0.6-1.0); GFR 81.1; POTASSIUM 3.6 mmol/L (3.5-5.1)
[2021-02-24] MEDS: ASCORBIC ACID 500 MG TABLET PO SCH (09:51)
[2021-02-24] MEDS: GABAPENTIN 100 MG CAPSULE. PO SCH ×3 (09:51→20:17)
[2021-02-24] MEDS: CHOLECALCIFEROL (VITAMIN D3) 5,000 UNIT CAPSULE PO SCH (09:51)
[2021-02-24] MEDS: DICYCLOMINE HCL 10 MG CAPSULE PO SCH ×4 (09:51→20:18)
[2021-02-24] MEDS: TIMOLOL 0.5% OPHTH SOLUTION 5ML BOTTLE. OU SCH ×2 (09:51→16:19)
[2021-02-24] MEDS: LACTOBACILLUS RHAMNOSUS GG 1 CAPSULE. PO SCH ×2 (09:51→20:17)
[2021-02-24] MEDS: BRIMONIDINE 0.2% OPHTH SOLUTION 5ML BOTTLE. OU SCH ×2 (09:52→16:19)
[2021-02-24] MEDS: DORZOLAMIDE 2% OPHTH SOLUTION 10ML BOTTLE. OU SCH ×2 (09:52→14:12)
[2021-02-24] MEDS: OXYBUTYNIN CHLORIDE 5 MG TABLET PO SCH ×3 (09:54→20:18)
--- NOTE | 2021-02-24 10:18 | PDOC ---
Date of Service: DATE: 02/24/21 TIME: 10:14 Subjective: Subjective: Didn't sleep well because had to have her blood pressure checked. Thinks the machine wasn't working because BP was really high (says) 180 but then better shortley after (150). Discussed BLE neuropathy and LLE swelling. "Pooped all day yesterday" but also mentions feeling of constipation at times. No urinary complaints today. Tolerating diet. Objective: Vital Signs: Vital Signs Date Time Temp Pulse Resp B/P (MAP) Pulse Ox O2 Delivery O2 Flow Rate FiO2 02/24/21 07:00 98.0 69 18 156/77 (103) 96 Room Air 98.0 Labs: Laboratory Tests Test 02/24/21 03:36 White Blood Count 4.7 x10^3/uL Red Blood Count 3.88 x10^6/uL Hemoglobin 11.7 g/dL Hematocrit 35.4 % Mean Corpuscular Volume 91 fL Mean Corpuscular Hemoglobin 30 pg Mean Corpuscular Hemoglobin Concent 33 g/dL Red Cell Distribution Width 13.7 % Platelet Count 288 x10^3/uL Neutrophils (%) (Auto) 53 % Lymphocytes (%) (Auto) 32 % Monocytes (%) (Auto) 10 % Eosinophils (%) (Auto) 5 % Basophils (%) (Auto) 1 % Neutrophils # (Auto) 2.5 x10^3/uL Lymphocytes # (Auto) 1.5 x10^3/uL Monocytes # (Auto) 0.4 x10^3/uL Eosinophils # (Auto) 0.2 x10^3/uL Basophils # (Auto) 0.0 x10^3/uL Sodium Level 141 mmol/L Potassium Level 3.6 mmol/L Chloride Level 105 mmol/L Carbon Dioxide Level 30 mmol/L Anion Gap 6 Blood Urea Nitrogen 4 mg/dL Creatinine 0.7 mg/dL Estimated GFR (Cockcroft-Gault) 81.1 Glucose Level 96 mg/dL Calcium Level 8.9 mg/dL PE: GEN: NAD LUNGS: CTAB HEART: RRR ABD: NABS, S/ND/NT NEURO/PSYCH: A & O 3 A/P: Diverticulitis w/ colovesicular fistula - on IV atbx and soft diet -- Continue per surgery/primary. Plans for coordination w/ urology as outpt. Justicifation of Admission Dx: Justifications for Admission: Justification of Admission Dx: N/A YOANDY ADAMS Feb 24, 2021 10:18
--- NOTE | 2021-02-24 11:08 | NUR ---
ARABELLA following. Discussed with RN, pt accepted with [facility]. Dr. Payne awaiting surgery to see pt before discharge. ARABELLA will continue to follow. Addendum: 02/24/21 at 1353 by JAY BELL Discharge orders faxed to [facility]. RN notified.
[2021-02-24] MEDS: IV NORMAL SALINE 1000ML BAG 1,000 ML IV SCH (11:50)
--- NOTE | 2021-02-24 11:51 | PDOC ---
[facility] PROGRESS NOTE Date of Service DOS: DATE: 02/24/21 TIME: 11:48 Chief Complaint Chief Complaint CC: LLQ abdominal pain Diverticulitis Urge Incontinence Colovesicular Fistula extensive UTI history Obesity Anxiety Neuropathy HTN Glaucoma Cardiac Catheterization History of Present Illness History of Present Illness Ms Denis is a 75-year-old female who presented with diverticulitis, had ou tpatient CT scan concerning for colovesicular fistula with perforated diverticulitis with abscess outpatient and was instructed to go to the ED. She was transferred from [facility], as they were concerned there could be a perforation. Started IV antibiotics and consulted general surgery and GI. 02/20: Patient's abdominal pain is improving and no new concerns. 02/21: Feeling better however still is having abdominal pain; says her appetite is improving and would like to try solid food however will do another day of liquids per surgical team 02/22:Afebrile overnight. Urine from [facility] polymicrobial. She is upset about not getting her diet advanced. Pain reasonably controlled. 02/23: Patient seen and examined at bedside; no complaints this morning, she was very happy to have her diet advanced yesterday. She said she tolerated it well without difficulty. Awaiting surgical team recommendations for outpatient surgery and transition to oral antibiotics. If can transition to oral an tibiotics today likely DC today or tomorrow 02/24: Answer changes overnight. Very eager for discharge today. Transition to oral antibiotics and further surgical intervention as an outpatient. Vitals/I&O Vitals/I&O: Vital Signs Date Time Temp Pulse Resp B/P (MAP) Pulse Ox O2 Delivery O2 Flow Rate FiO2 02/24/21 07:00 98.0 69 18 156/77 (103) 96 Room Air 98.0 I & O 02/23/21 02/23/21 02/24/21 15:00 23:00 07:00 Intake Total 220 ml 280 ml Balance 220 ml 280 ml Physical Exam General: Alert, Oriented X3, Cooperative, No acute distress Heart: Regular rate Lungs: Clear Abdomen: Soft, No tenderness, No hepatosplenomegaly Extremities: No clubbing, No cyanosis Skin: No rashes, No significant lesion Labs Labs: Laboratory Tests Test 02/24/21 03:36 White Blood Count 4.7 x10^3/uL (4.0-11.0) Red Blood Count 3.88 x10^6/uL (3.50-5.40) Hemoglobin 11.7 g/dL (12.0-15.5) Hematocrit 35.4 % (36.0-47.0) Mean Corpuscular Volume 91 fL (79-100) Mean Corpuscular Hemoglobin 30 pg (25-35) Mean Corpuscular Hemoglobin Concent 33 g/dL (31-37) Red Cell Distribution Width 13.7 % (11.5-14.5) Platelet Count 288 x10^3/uL (140-400) Neutrophils (%) (Auto) 53 % (31-73) Lymphocytes (%) (Auto) 32 % (24-48) Monocytes (%) (Auto) 10 % (0-9) Eosinophils (%) (Auto) 5 % (0-3) Basophils (%) (Auto) 1 % (0-3) Neutrophils # (Auto) 2.5 x10^3/uL (1.8-7.7) Lymphocytes # (Auto) 1.5 x10^3/uL (1.0-4.8) Monocytes # (Auto) 0.4 x10^3/uL (0.0-1.1) Eosinophils # (Auto) 0.2 x10^3/uL (0.0-0.7) Basophils # (Auto) 0.0 x10^3/uL (0.0-0.2) Sodium Level 141 mmol/L (136-145) Potassium Level 3.6 mmol/L (3.5-5.1) Chloride Level 105 mmol/L (98-107) Carbon Dioxide Level 30 mmol/L (21-32) Anion Gap 6 (6-14) Blood Urea Nitrogen 4 mg/dL (7-20) Creatinine 0.7 mg/dL (0.6-1.0) Estimated GFR (Cockcroft-Gault) 81.1 Glucose Level 96 mg/dL (70-99) Calcium Level 8.9 mg/dL (8.5-10.1) Comment Review of Relevant I have reviewed the following items monserrat (where applicable) has been applied. Justifications for Admission Other Justification MYRIAM LANDAVERDE MD Feb 24, 2021 11:51
--- NOTE | 2021-02-24 11:53 | PDOC3 ---
[facility]-Discharge Summary Date of Admission: Date of Admission: Feb 19, 2021 Date of Discharge: Date of Discharge: Feb 24, 2021 Admission Diagnosis: Admitting Diagnosis: diverticulitis, colovesicular fistula Discharge Diagnosis: Discharge Diagnosis: same as admitting Consults: Consults: Surgery, GI Hospital Course: Hospital Course: Ms Denis is a 75-year-old female who presented with diverticulitis, had outpatient CT scan concerning for colovesicular fistula with perforated diverticulitis with abscess outpatient and was instructed to go to the ED. She was transferred from [facility], as they were concerned there could be a perforation. Started IV antibiotics and consulted general surgery and GI. 02/20: Patient's abdominal pain is improving and no new concerns. 02/21: Feeling better however still is having abdominal pain; says her appetite is improving and would like to try solid food however will do another day of liquids per surgical team 02/22:Afebrile overnight. Urine from [facility] polymicrobial. She is upset about not getting her diet advanced. Pain reasonably controlled. 02/23: Patient seen and examined at bedside; no complaints this morning, she was very happy to have her diet advanced yesterday. She said she tolerated it well without difficulty. Awaiting surgical team recommendations for outpatient surgery and transition to oral antibiotics. If can transition to oral antibiotics today likely DC today or tomorrow 02/24: Answer changes overnight. Very eager for discharge today. Transition to oral antibiotics and further surgical intervention as an outpatient. Disposition: Disposition/Orders: D/C to Home Activity: Activity: Resume previous activity Diet: Diet: Regular Medications: Home Meds Reported Medications Losartan Potassium (LOSARTAN POTASSIUM) 50 Mg Tablet, 50 MG PO DAILY for HYPERTENSION, TAB 02/18/21 Ascorbic Acid (VITAMIN C) 500 Mg Capsule.er, 1 CAP PO DAILY for supplement for 30 Days, #30 CAP 0 Refills 02/18/21 Cholecalciferol (Vitamin D3) (Vitamin D3) 125 Mcg Tablet, 125 MCG PO DAILY for supplement, TAB 02/18/21 Brinzolamide (AZOPT) 10 Ml Drops.susp, 1 DROP EACHEYE TID for glaucoma, #10 ML 6 Refills 02/18/21 Brimonidine Tartrate/Timolol (COMBIGAN EYE DROPS) 5 Ml Drops, 5 ML OU BID for glaucoma, DROP 02/18/21 Bimatoprost (LUMIGAN) 2.5 Ml Drops, 1 DROP EACHEYE QHS for Glaucoma, #7.5 ML 3 Refills 02/18/21 Dicyclomine Hcl (DICYCLOMINE HCL) 10 Mg/5 Ml Solution, 10 MG PO QID for pain, ML 02/18/21 Gabapentin (GABAPENTIN ) 100 Mg Capsule, 100 MG PO TID for NEUROGENIC PAIN, CAP 02/18/21 Hydrochlorothiazide (HYDROCHLOROTHIAZIDE CAPSULE ) 12.5 Mg Capsule, 12.5 MG PO DAILY for DIURETIC, CAP 0 Refills 02/18/21 Scheduled Ascorbic Acid (Vitamin C), 1 CAP PO DAILY, (Reported) Bimatoprost (Lumigan), 1 DROP EACHEYE QHS, (Reported) Brimonidine Tartrate/Timolol (Combigan Eye Drops), 5 ML OU BID, (Reported) Brinzolamide (Azopt), 1 DROP EACHEYE TID, (Reported) Cholecalciferol (Vitamin D3) (Vitamin D3), 125 MCG PO DAILY, (Reported) Dicyclomine Hcl (Dicyclomine Hcl), 10 MG PO QID, (Reported) Gabapentin (Gabapentin ), 100 MG PO TID, (Reported) Hydrochlorothiazide (Hydrochlorothiazide Capsule ), 12.5 MG PO DAILY, (Reported) Losartan Potassium (Losartan Potassium), 50 MG PO DAILY, (Reported) Justicifation of Admission Dx: Justifications for Admission: Justification of Admission Dx: N/A MYRIAM LANDAVERDE MD Feb 24, 2021 11:53
[2021-02-24] MEDS ORDERED: METR500T PO (12:00)
[2021-02-24] MEDS ORDERED: CEPH250C PO (12:00)
[2021-02-24] MEDS ORDERED: CEPHALEXIN 250 MG CAPSULE. PO SCH (13:00)
--- NOTE | 2021-02-24 13:07 | PDOC ---
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 1307: SURGICAL PROGRESS NOTE DATE: 02/24/21 TIME: 13:06 Subjective doing well minimal pain Vital Signs Vital Signs Date Time Temp Pulse Resp B/P (MAP) Pulse Ox O2 Delivery O2 Flow Rate FiO2 02/24/21 11:00 98.2 69 18 138/61 (86) 95 Room Air 98.2 I&O Intake and Output 02/24/21 07:00 Intake Total 500 ml Balance 500 ml Intake Oral 500 ml # Voids 6 General: Alert, Oriented X3, Cooperative Abdomen: Soft, No tenderness Labs Laboratory Tests Test 02/23/21 04:15 02/24/21 03:36 White Blood Count 5.0 x10^3/uL (4.0-11.0) 4.7 x10^3/uL (4.0-11.0) Red Blood Count 3.62 x10^6/uL (3.50-5.40) 3.88 x10^6/uL (3.50-5.40) Hemoglobin 10.9 g/dL (12.0-15.5) 11.7 g/dL (12.0-15.5) Hematocrit 32.8 % (36.0-47.0) 35.4 % (36.0-47.0) Mean Corpuscular Volume 91 fL (79-100) 91 fL (79-100) Mean Corpuscular Hemoglobin 30 pg (25-35) 30 pg (25-35) Mean Corpuscular Hemoglobin Concent 33 g/dL (31-37) 33 g/dL (31-37) Red Cell Distribution Width 13.6 % (11.5-14.5) 13.7 % (11.5-14.5) Platelet Count 256 x10^3/uL (140-400) 288 x10^3/uL (140-400) Neutrophils (%) (Auto) 56 % (31-73) 53 % (31-73) Lymphocytes (%) (Auto) 29 % (24-48) 32 % (24-48) Monocytes (%) (Auto) 11 % (0-9) 10 % (0-9) Eosinophils (%) (Auto) 4 % (0-3) 5 % (0-3) Basophils (%) (Auto) 1 % (0-3) 1 % (0-3) Neutrophils # (Auto) 2.8 x10^3/uL (1.8-7.7) 2.5 x10^3/uL (1.8-7.7) Lymphocytes # (Auto) 1.5 x10^3/uL (1.0-4.8) 1.5 x10^3/uL (1.0-4.8) Monocytes # (Auto) 0.5 x10^3/uL (0.0-1.1) 0.4 x10^3/uL (0.0-1.1) Eosinophils # (Auto) 0.2 x10^3/uL (0.0-0.7) 0.2 x10^3/uL (0.0-0.7) Basophils # (Auto) 0.0 x10^3/uL (0.0-0.2) 0.0 x10^3/uL (0.0-0.2) Sodium Level 143 mmol/L (136-145) 141 mmol/L (136-145) Potassium Level 3.8 mmol/L (3.5-5.1) 3.6 mmol/L (3.5-5.1) Chloride Level 109 mmol/L (98-107) 105 mmol/L (98-107) Carbon Dioxide Level 33 mmol/L (21-32) 30 mmol/L (21-32) Anion Gap 1 (6-14) 6 (6-14) Blood Urea Nitrogen 4 mg/dL (7-20) 4 mg/dL (7-20) Creatinine 0.7 mg/dL (0.6-1.0) 0.7 mg/dL (0.6-1.0) Estimated GFR (Cockcroft-Gault) 81.1 81.1 Glucose Level 97 mg/dL (70-99) 96 mg/dL (70-99) Calcium Level 8.7 mg/dL (8.5-10.1) 8.9 mg/dL (8.5-10.1) Total Bilirubin 0.5 mg/dL (0.2-1.0) Direct Bilirubin 0.2 mg/dL (0.0-0.2) Aspartate Amino Transf (AST/SGOT) 20 U/L (15-37) Alanine Aminotransferase (ALT/SGPT) 16 U/L (14-59) Alkaline Phosphatase 41 U/L (46-116) Total Protein 6.2 g/dL (6.4-8.2) Albumin 2.2 g/dL (3.4-5.0) Laboratory Tests Test 02/24/21 03:36 White Blood Count 4.7 x10^3/uL (4.0-11.0) Red Blood Count 3.88 x10^6/uL (3.50-5.40) Hemoglobin 11.7 g/dL (12.0-15.5) Hematocrit 35.4 % (36.0-47.0) Mean Corpuscular Volume 91 fL (79-100) Mean Corpuscular Hemoglobin 30 pg (25-35) Mean Corpuscular Hemoglobin Concent 33 g/dL (31-37) Red Cell Distribution Width 13.7 % (11.5-14.5) Platelet Count 288 x10^3/uL (140-400) Neutrophils (%) (Auto) 53 % (31-73) Lymphocytes (%) (Auto) 32 % (24-48) Monocytes (%) (Auto) 10 % (0-9) Eosinophils (%) (Auto) 5 % (0-3) Basophils (%) (Auto) 1 % (0-3) Neutrophils # (Auto) 2.5 x10^3/uL (1.8-7.7) Lymphocytes # (Auto) 1.5 x10^3/uL (1.0-4.8) Monocytes # (Auto) 0.4 x10^3/uL (0.0-1.1) Eosinophils # (Auto) 0.2 x10^3/uL (0.0-0.7) Basophils # (Auto) 0.0 x10^3/uL (0.0-0.2) Sodium Level 141 mmol/L (136-145) Potassium Level 3.6 mmol/L (3.5-5.1) Chloride Level 105 mmol/L (98-107) Carbon Dioxide Level 30 mmol/L (21-32) Anion Gap 6 (6-14) Blood Urea Nitrogen 4 mg/dL (7-20) Creatinine 0.7 mg/dL (0.6-1.0) Estimated GFR (Cockcroft-Gault) 81.1 Glucose Level 96 mg/dL (70-99) Calcium Level 8.9 mg/dL (8.5-10.1) Assessment/Plan oral abx, will call pt with FU when arrangements are made Justicifation of Admission Dx: Justifications for Admission: Justification of Admission Dx: N/A SEVERO ANNE MD 02/24/21 1510: SURGICAL PROGRESS NOTE Assessment/Plan Agree with Katya assessment and plan BEST BANKS APRN Feb 24, 2021 13:07 SEVERO ANNE MD Feb 24, 2021 15:10
--- NOTE | 2021-02-24 13:47 | SNU/HH DC ---
DISCHARGE WITH HOME HEALTH DISCHARGE INFORMATION: Discharge Date: Feb 24, 2021 Final Diagnosis: Diverticulitis, colovesicular fistula Condition on Discharge: Stable CODE STATUS: Code Status: Full HOME HEALTH: Face to Face: I certify this patient is under my care and that I, or a nurse practitioner or physician's lens assistant working with me, had a face to face encounter that meets the physician face to face encounter requirements with this patient on []. RN For Eval/Treatment: Yes Physical Therapy For: Evalulation/Treatment Occupational Therapy For: Evaluation/Treatment Pt Meets Homebound Status: Unsteady balance w/ amb,, Extreme weakness w/ amb., Fatigue w/ amb. POST DISCHARGE ORDERS: Activity Instructions for Disc: No restrictions Weight Bearing Status after Di: No restrictions DIET AFTER DISCHARGE: Regular Wound/Incision Care: Reinforce dressing PRN CHECKS AFTER DISCHARGE: Checks after discharge: Check blood press - daily FOLLOW-UP: Follow up with: primary doctor in 1-2 weeks Follow Up With: urology for possible surgery TREATMENT/EQUIPMENT ORDERS: Adaptive Equipment Issued: Walker CERTIFICATION STATEMENT: Certification Statement: Certification Statement: Based on the above finding, I certify that this patient is confined to the home and needs intermittent long term care, physical therapy and/or speech therapy, or continues to need occupational therapy.~ This patient is under my care, and I have initiated the establishment of the plan of care.~ This patient will be followed by myself or a community physician who will periodically review the plan of care. Home Meds Active Scripts Metronidazole (FLAGYL) 500 Mg Tablet, 500 MG PO Q8HRS for intraabdominal infection for 14 Days, #42 TAB Prov:MYRIAM LANDAVERDE MD 02/24/21 Cephalexin (CEPHALEXIN) 250 Mg Capsule, 500 MG PO BID for colovesicular fistula for 14 Days, #56 CAP Prov:MYRIAM LANDAVERDE MD 02/24/21 Reported Medications Losartan Potassium (LOSARTAN POTASSIUM) 50 Mg Tablet, 50 MG PO DAILY for HYPERTENSION, TAB 02/18/21 Ascorbic Acid (VITAMIN C) 500 Mg Capsule.er, 1 CAP PO DAILY for supplement for 30 Days, #30 CAP 0 Refills 02/18/21 Cholecalciferol (Vitamin D3) (Vitamin D3) 125 Mcg Tablet, 125 MCG PO DAILY for supplement, TAB 02/18/21 Brinzolamide (AZOPT) 10 Ml Drops.susp, 1 DROP EACHEYE TID for glaucoma, #10 ML 6 Refills 02/18/21 Brimonidine Tartrate/Timolol (COMBIGAN EYE DROPS) 5 Ml Drops, 5 ML OU BID for glaucoma, DROP 02/18/21 Bimatoprost (LUMIGAN) 2.5 Ml Drops, 1 DROP EACHEYE QHS for Glaucoma, #7.5 ML 3 Refills 02/18/21 Dicyclomine Hcl (DICYCLOMINE HCL) 10 Mg/5 Ml Solution, 10 MG PO QID for pain, ML 02/18/21 Gabapentin (GABAPENTIN ) 100 Mg Capsule, 100 MG PO TID for NEUROGENIC PAIN, CAP 02/18/21 Hydrochlorothiazide (HYDROCHLOROTHIAZIDE CAPSULE ) 12.5 Mg Capsule, 12.5 MG PO DAILY for DIURETIC, CAP 0 Refills 02/18/21 MYRIAM LANDAVERDE MD Feb 24, 2021 13:47
[2021-02-24] MEDS: metroNIDAZOLE 500 MG TABLET PO SCH ×2 (14:10→20:17)
--- NOTE | 2021-02-24 16:34 | NUR ---
Pt was given all discharge instructions, follow up information, new prescriptions and teaching. Pt's Iv was removed, all belongings were collected for discharge, pt states her daughter will come to get her at 8pm tonight. Report will be given to the next nurse on marketing planning manager.
[2021-02-24] MEDS: LOSARTAN POTASSIUM 50 MG TABLET. PO SCH (20:18)
--- NOTE | 2021-02-24 21:27 | NUR ---
pt dc to home with daughter at 214.
== END 2021-02-24 21:40 | disposition home or self-care (01) | DRG 392 ==
LOC: 4 NORTH 20:24 → UNDODISIN 02-24 20:40
PROVIDERS: ADMIT Internal Medicine; ATTEND Internal Medicine
DX: K57.20 Diverticulitis of large intestine with perforation and abscess without bleeding (principal); N32.1 Vesicointestinal fistula; D64.9 Anemia, unspecified; H91.90 Unspecified hearing loss, unspecified ear; I10 Essential (primary) hypertension; K59.00 Constipation, unspecified; Z87.440 Personal history of urinary (tract) infections; E66.9 Obesity, unspecified; F41.9 Anxiety disorder, unspecified; Z68.37 Body mass index [BMI] 37.0-37.9, adult; Z79.899 Other long term (current) drug therapy; Z98.51 Tubal ligation status; G62.9 Polyneuropathy, unspecified; N39.41 Urge incontinence
CPT/HCPCS: 36415; 80048; 80076; 83735; 85025; J2543; J7030; 97110-GO; 97535-GO; G0378